=== PATIENT | female | born 1950 | race Caucasian/White ===

== ENCOUNTER 2017-06-18 07:51 | Day surgery (SDC) | payer MEDICARE, OTHER, SELFPAY ==
[2017-04-17 08:52] VITALS: BP 130/68; BMI 27.3
[2017-06-15 11:14] LABS: Hematocrit 38.4 % (37-47); Hemoglobin 13.2 g/dl (12.0-15.0); Mean Corp Hgb Conc 34.4 g/gl (32-36); Mean Corpuscular Hgb 30.3 pg (27.0-32.0); Mean Corpuscular Volume 88.1 fL (81-99); Mean Platelet Vol. 9.6 fl (6.2-12.0); Platelet Count 335 K/mm3 (150-450); RBC Distribution Width CV 12.9 % (11.6-14.6); RBC Distribution Width SD 40.4 fl (35.1-43.9); Red Blood Count 4.36 M/mm3 (4.2-5.4); White Blood Count 6.1 K/mm3 (4.4-11.0)
[2017-06-15 11:35] LABS: Anion Gap 7 (5-15); BUN 23 mg/dL (7-18); Calcium,Total 8.8 mg/dL (8.5-10.1); Chloride 107 mmol/L (98-107); Creatinine, Serum 0.74 mg/dL (0.55-1.02); EST Glomerular Filtration Rate 84 mL/min (>60); Est Glom Filt Rate - Afr Amer 101 mL/min (>60); Glucose 89 mg/dL (74-106); Potassium 3.6 mmol/L (3.5-5.1); Sodium Level 142 mmol/L (136-145)
[2017-06-15 11:37] LABS: Scan Indicated on CBC? Y/N NO
--- NOTE | 2017-06-16 10:42 | EKG12_ITS ---
Test Reason : PRE OP Blood Pressure : / mmHG Vent. Rate : 073 BPM Atrial Rate : 073 BPM P-R Int : 158 ms QRS Dur : 074 ms QT Int : 378 ms P-R-T Axes : 062 023 012 degrees QTc Int : 416 ms Normal sinus rhythm Normal ECG Confirmed by ANTHONY QUINTERO, JENNIFER ([id number]), publications editor AB GOLDMAN ([id number]) on 06/19/2017 12:53:25 PM Referred By: Loren Chang Confirmed By:JENNIFER CRUZ MD
--- NOTE | 2017-06-18 | OV_PTH ---
PATIENT: THERON VARNER LOC: [facility] U#:[id number] AGE/SX: 66/F ROOM: RE06/18/[address]: Dr. Loren Chang MD : 1950 BED: DIS: 06/18/2017 SPEC #: [id number] RECD: 06/18/17 11:25 STATUS: YURI SHANICE #: [id number] AUGUSTO: 06/18/17 00:[address]: Loren Chang DEPT: SURGICAL PATHOLOGY RECD BY: Audi Cuevas ENTERED: 06/18/17 11:25 SP TYPE: OVARY OTHR DR: Dr. 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 Fallopian tube - no pathologic diagnosis. KAILEE:rogelio 06/19/17 COMMENT Please make reference to previous specimen ([id number]) ovary and fallopian tube, right, salpingo-oophorectomy with diagnosis of ovarian serous cystadenofibroma with serous papilloma. MICROSCOPIC DESCRIPTION Slides are reviewed. GROSS DESCRIPTION Received in fixative is one container labeled with the patient's name and designated left tube and ovary. The specimen consists of a smooth, glistening cystic ovary that is light pink-wyman in color measuring 5.5 x 4 x 3.5 cm. The external surface is smooth and glistening. No papillary projections or excrescences are identified. The adjacent tube is a fallopian tube measuring 7 cm in length and 0.4 cm in average diameter. No tubo-ovarian adhesions are seen. The external surface of the ovary is inked and the ovary is serially sectioned. The inner cyst wall lining is also smooth and glistening. The ovary contains clear, light wyman fluid. The cyst wall averages 0.1 cm in thickness. A focal nodularity measuring 2 mm in greatest dimension is noted. A white plaque-like area measuring 3 x 2 x 0.2 cm in also present adjacent to this area of nodularity. Filling Carrier sections of ovary and fallopian tube are submitted in four cassettes. / AM:rogelio 06/18/17 TC:1 CPT: 39751
[2017-06-18 08:26] VITALS: BP 112/56; PULSE 75; RESP 16; TEMP 36.7; O2SAT 97; BMI 27.8
--- NOTE | 2017-06-18 09:15 | FLU_PTH ---
PATIENT: THERON VARNER LOC: [facility] U#:[id number] AGE/SX: 66/F ROOM: RE06/18/[address]: Dr. Loren Chang MD : 1950 BED: DIS: 06/18/2017 SPEC #: [id number] RECD: 06/18/17 11:24 STATUS: YURI SHANICE #: [id number] AUGUSTO: 06/18/17 09:[address]: Loren Chang DEPT: CYTOLOGY RECD BY: Audi Cuevas ENTERED: 06/18/17 11:25 SP TYPE: Fluid OTHR DR: Dr. Zhou Richards III, MD Tissues: A - Pelvis, NOS B - OVARIAN CYST Procedures: Pap Stain (control) Special Stain Group II Surgery Specimen Level IV Cell Block Cytospin Fluid HEADER OPERATION: Laparoscopic salpingo-oophorectomy, cell washings PRE-OP DIAGNOSIS: Left ovarian cyst TISSUE SUBMITTED: A ? Pelvic washings for cytology, B ? Left ovarian cyst fluid for cytology DIAGNOSIS CYTOLOGY A. Pelvic washings for cytology (cytospin and cell block): Negative for malignant cells. See cytology study and comment. B. Left ovarian cyst fluid (cytospin and cell block): Negative for malignant cells. See cytology study and comment. SJ:rg 06/19/17 COMMENT Please correlate with corresponding surgical specimen [id number], left fallopian tube and ovary with diagnosis of serous cystadenofibroma with focal papillary features. CYTOLOGY STUDY Slides are reviewed. A. The specimen is paucicellular and bloody and consists of benign mesothelial cells. B. The specimen is bloody and consists of benign epithelial lining cells and numerous macrophages. CYTOLOGY GROSS A - Received is 70 ml of cloudy fluid labeled with the patient's name and and designated per the requisition as pelvic washings. Submitted for cytology preparation including cell block. B - Received is 5 ml of red cloudy fluid labeled with the patient's name and and designated per the requisition as left ovarian cyst fluid. Submitted for cytology preparation including cell block. 06/18/17 TC:5 CPT: 13315 x2, 96696 x2
--- NOTE | 2017-06-18 09:46 | HP.PCM_ITS ---
History and Physical Date of Admission: 06/18/17 Intake Vital Signs 3 04/17/17 Height 5 ft 1.5 in 04/17/17 Weight: 147 lb 8 oz 04/17/17 Body Mass Index (BMI) 27.3 04/17/17 Blood Pressure 130/68 Intake Visit Reasons: Consult cyst Chief Complaint: Cyst Consult Foreclosure Field Inspector Required: No Is patient in pain?: No Allergies No Known Allergies Allergy (Unverified 04/17/17 08:57) Medications estradiol 10 mcg vaginal tablet 10 mcg VAGINAL QDAY 30 Days #30 tab 04/17/17 [ Rx Confirmed 04/17/17] hydrochlorothiazide 25 mg tablet 25 mg PO QDAY 04/17/17 [History Confirmed 04/17] Is last menstrual period known: No Post menopausal: Yes Patient : No : No PFSH Medical History EP Study Ablation (Acute) Surgical History H/O colonoscopy (Acute) History of appendectomy (Acute) Family History Father Heart disease Social History Smoking Status: Never smoker alcohol intake: current details: social substance use type: does not use caffeine: Yes frequency: 1-2 times per week seatbelt use: always do you feel safe at home: Yes HPI Consult cyst: Details: THERON VARNER is a 66 year old who presents for fu of ovarian cyst. It appears stable in size but she is still symptomatic with painful intercourse and wants to have it removed. s he denies signficaint daily pain or any bleeding or discharge. Pregancy History 2 2 Elective abortions Hx Para 2 Spontaneous abortions Hx # Term Pregnancies Ectopic pregnancies Hx # Pregnancies Multiple births # of living children Past Pregnancies Del. Date Name GA/Weeks Outcome Route Bth Weight Gen Labor [facility] FOB Unknown 1969 Rudy Unknown 1971 Tawnya SU Const Constitutional: Reports system reviewed and no additional complaints, except as docu GI GI: Denies abdominal pain, nausea, vomiting or cramping : Reports as per HPI all other systems reviewed and negative Exam Const General: cooperative, healthy appearing, comfortable, no acute distress, well developed Nutritional Appearance: average body habitus Orientation: alert [facility] Head: normal to inspection, normocephalic Ears: hearing grossly normal bilaterally, external ears normal Nose: external nose normal, nares normal Face and sinus: normal facial exam Neck Neck: normal visual inspection, trachea midline, no lymphadenopathy Thyroid: thyroid normal Resp Effort & Inspection: normal respiratory effort Abdn: soft NTTP ND Musc Other: gross motor intact no deficits, full bilateral strength Skin General: no rashes or lesions noted Neuro Motor: muscle tone normal throughout Assessment & Plan Problems 1. Left ovarian cyst N83.202 plan surgical removal Plan discussed expectant managment versus surgical removal- plan laparoscopic LSO. Discussed with the patient risks of surgery including risks of anesthesia, bleeding, infection, damage to surrounding structures such as bowel, bladder, or vasculature that could lead to additional surgery to repair. 06/18/17 945 i have seen patient and updated h and p Loren Chang
[2017-06-18] MEDS: Bupivacaine 0.25% 30 ML Vial (10:05)
[2017-06-18 11:08] VITALS: BP 112/56; BP 123/91; PULSE 85; RESP 18; TEMP 36.9; O2SAT 94
--- NOTE | 2017-06-18 11:10 | PCM.DC.TUB ---
Discharge Diet: No Restrictions - Increase fluid intake for the next 48 hours. Discharge Activity: Return to Normal Activity, May Drive - when you are no longer taking narcotic pain medications., May Shower, May Take a Tub Bath - in 7 days Additional Activity Instructions:: Ambulate often the next week after surgery. Nothing in the vagina for 5 days. Call your doctor if your incision/area has: Continuous Slow Oozing, Sudden Increased Bleeding, Increased Pain/ Swelling, Increased Redness, Foul Smelling Discharge Call your doctor if you observe: Fever of 101 or Higher Allergies/Adverse Reactions: Allergies No Known Allergies Allergy (Unverified 06/11/17 15:00) Medications to take at Discharge hydrochlorothiazide 25 mg tablet 25 mg PO QDAY 04/17/17 Albuterol Inhaler [Ventolin Hfa (SP)] 1 - 2 puff INHALATION Q6H PRN PRN 06/11/17 Estradiol 10 mcg VAGINAL MOWEFR 06/11/17 Multivitamin [Multiple Vitamins] 1 each PO DAILY 06/11/17 Omeprazole Magnesium [Prilosec Otc] 20 mg PO PRN PRN 06/11/17 Turmeric Root Extract [Turmeric] 500 mg PO DAILY 06/11/17 Naproxen [Naprosyn] 250 - 500 mg PO Q8H PRN PRN #30 tab 06/18/17 Oxycodone HCl/Acetaminophen [Percocet 5-325] 2 tablet PO Q4H PRN PRN 7 Days #28 tablet 06/18/17 The following prescriptions were given: Oxycodone HCl/Acetaminophen [Percocet 5-325] 2 tablet PO Q4H PRN PRN 7 Days #28 tablet PRN Reason: Moderate-Severe pain Naproxen [Naprosyn] 250 - 500 mg PO Q8H PRN PRN #30 tab PRN Reason: MILD PAIN Primary Care Physician: Zhou Richards III, MD [Primary Care Provider] - Please Follow Up With: Loren Chang MD - [phone] When: 2 weeks
[2017-06-18 11:15] VITALS: BP 112/56; BP 141/68; PULSE 88; RESP 18; O2SAT 93
[2017-06-18 11:30] VITALS: BP 112/56; BP 143/71; PULSE 89; RESP 18; O2SAT 94
[2017-06-18 11:45] VITALS: BP 112/56; BP 133/71; PULSE 75; RESP 16; TEMP 36.9; O2SAT 95
[2017-06-18] MEDS: HYDROcodone Bitartrate/Apap 5/325 Tablet PO (12:21)
[2017-06-18 13:06] VITALS: BP 112/56
--- NOTE | 2017-06-19 06:15 | PCM.OPRPT ---
Problem List (1) Left ovarian cyst Status: Chronic Comment: plan surgical removal Report of Operation Date of Procedure: 06/19/17 Pre-Operative Diagnosis: left ovarian cyst Post-Operative Diagnosis: SAME Surgery/Procedure Performed:: laparoscopic left salpingooohorectomy Description of Surgical Findings:: left ovarian cyst and scar tissue around cyst plasma processing technician: Sheridan Mcleod Type of Anesthesia:: General Special Medications: none Specimen's removed: left fallopian tube and ovary Drains: none Estimated Blood Loss (mL): minimal Fluids Replaced: crystalloid Description of Procedure: Patient was taken in the operating room and was placed under general anesthesia was prepped and draped in normal sterile fashion in the dorsal lithotomy position. Bladder was drained of clear urine and SCDs were on preoperatively. Uterus was sounded and a uterine manipulator was placed after dilating. Attention was then paid to the abdominal portion of the procedure and the umbilicus was elevated with towel clamps and injected with Marcaine and after a 12 mm incision was made and the Veress needle was entered into the abdomen confirmed to be intra-abdominal with a low opening pressure of less than 5 mmHg. Abdomen was insufflated with CO2 gas and a 12 mm optical trocar was placed under direct visualization. A left lower quadrant 5 mm port and a 5 mm port in the RLQ placed under direct visualization. left ovary was identified and noted to be significantly enlarged with some overlying omental scar tissue and rectosigmoid adhesions whic hwere taken down twith the ligasure device. Excellent hemostasis was noted but some raw appearance to side wall and tae was applied. Liver and upper abdomen were visualized notably within normal limits and no other gross abnormalities were seen in the abdomen. umblical site was enlarged to remove the ovary inside a bag through the opening after some of the serosanguinous fluid was drained and removed. umbilical site was closed directly using 0 vicryl in the fascia. All instruments removed from the abdomen after gas was desufflated. Port sites were closed with 3-0 Monocryl Steri's and op sites were applied. All instruments removed from the vagina and patient was awoken and taken recovery in stable condition. all instruments removed from the vagina. Grafts/Implants Used: none - Complications none - Admit VTE Documentation VTE Present on Admission: No VTE Mechan Device Prophylaxis: SCD's
== END 2017-06-18 13:06 | disposition home or self-care (01) ==
LOC: SDC 07:52 → AC 07:52
PROVIDERS: Family Provider Family Medicine; PCP Family Medicine; Visit Provider Obstetrics & Gynecology
PROC: (CPT 58720; principal; 2017-06-18 09:00)
DX: N83.202 Unspecified ovarian cyst, left side (principal); J45.909 Unspecified asthma, uncomplicated; K21.9 Gastro-esophageal reflux disease without esophagitis; Z85.828 Personal history of other malignant neoplasm of skin
CPT/HCPCS: 58661; 36415; 80048; 85027; 86850; 86900; 88108; 88305; 88307; 88313; 93005; J7120; J2405

== ENCOUNTER → 2017-11-13 09:29 | Outpatient (CLI) | payer MEDICARE, OTHER, SELFPAY | PROVIDERS: Family Provider Family Medicine; PCP Family Medicine; Visit Provider Obstetrics & Gynecology | DX: R59.0 Localized enlarged lymph nodes (principal); R92.8 Other abnormal and inconclusive findings on diagnostic imaging of breast | CPT/HCPCS: 76642; 77062; 77066; G0279 ==

== ENCOUNTER → 2019-11-24 | Outpatient (CLI) | payer MEDICARE, SELFPAY ==
[2019-11-22 09:11] VITALS: BMI 27.3
--- NOTE | 2019-11-24 09:18 | BI_ITS ---
MAMMOGRAPHY - BILATERAL DIAGNOSTIC REASON FOR EXAM: Female, 68 years old. Left breast pain. PERTINENT HISTORY: Non-contributory. TECHNIQUE: Digital bilateral breast jacquie (3D mammographic acquisition) in the CC and MLO projections. 2-D mediolateral oblique (MLO) and craniocaudad (CC) views of both breasts were obtained. CAD: Full Field Digital Mammography with Computer Added Detection was performed. COMPARISON: Comparison is made with prior study dated 11/13/2017 and 01/13/2017 FINDINGS: Breast Composition: The breasts are heterogeneously dense, which may obscure small masses. There are no dominant masses or suspicious calcifications. Stable small benign-appearing bilateral axillary lymph nodes. No other significant abnormalities are identified. There has been no significant change since the prior study. BI/DIAG MAMM W/CAD, BILAT IMPRESSION: Stable bilateral diagnostic mammogram. With the patient''s history of left breast pain, correlation with ultrasound is recommended. ASSESSMENT CATEGORY: BIRADS Category 0: Incomplete. Need additional imaging evaluation. A letter regarding these results will be sent to the patient by the facility within 30 days. Approximately 10% of breast cancers are not detected by mammography. A normal mammogram should not delay biopsy of a clinically suspicious abnormality. Electronically Signed: Johnathan Domingo, at 10:41 EDT , Service support ,
--- NOTE | 2019-11-24 09:18 | US_ITS ---
STUDY: ULTRASOUND BREAST - LEFT REASON FOR EXAM: Female, 68 years old. Pain in the left breast. TECHNIQUE: Axial and longitudinal images of the LEFT breast were performed with a high resolution ultrasound transducer. # OF IMAGES: 17 COMPARISON: Comparison is made with prior mammogram done earlier in the day. FINDINGS: LEFT Breast: The retroareolar region of the left breast was examined by ultrasound. There is evidence of dilated retroareolar ducts. US/Breast Limited Unilateral IMPRESSION: Dilated retroareolar ducts. ASSESSMENT CATEGORY: BIRADS Category 2: Benign. A letter regarding these results will be sent to the patient by the facility within 30 days. Electronically Signed: Johnathan Domingo, at 11:20 EDT , Service support ,
== END | disposition home or self-care (01) ==
LOC: OPBI 09:18
PROVIDERS: PCP Family Medicine; Referring Provider Nurse Practitioner Women's Health; Visit Provider Nurse Practitioner Women's Health
DX: N64.4 Mastodynia (principal)
CPT/HCPCS: 76642; 77062; 77066; G0279

== ENCOUNTER → 2020-02-29 | Outpatient (CLI) | payer MEDICARE, SELFPAY ==
[2020-02-29 12:05] VITALS: BMI 29.0
== END | disposition home or self-care (01) ==
LOC: LABSPEC 16:39
PROVIDERS: PCP Family Medicine; Referring Provider Nurse Practitioner Women's Health; Visit Provider Nurse Practitioner Women's Health
DX: N39.0 Urinary tract infection, site not specified (principal); R30.0 Dysuria
CPT/HCPCS: 87086; 87088

== ENCOUNTER → 2020-03-29 | Outpatient (CLI) | payer MEDICARE, SELFPAY ==
[2020-03-29 09:07] VITALS: BMI 28.7
== END | disposition home or self-care (01) ==
LOC: LABSPEC 12:50
PROVIDERS: PCP Family Medicine; Referring Provider Nurse Practitioner Women's Health; Visit Provider Nurse Practitioner Women's Health
DX: N39.0 Urinary tract infection, site not specified (principal); R10.2 Pelvic and perineal pain
CPT/HCPCS: 87086; 87088

== ENCOUNTER → 2020-05-11 08:30 | Outpatient (CLI) | payer MEDICARE, SELFPAY ==
[2020-05-07 10:32] VITALS: BMI 28.3
--- NOTE | 2020-05-11 09:32 | US_ITS ---
STUDY: ULTRASOUND BREAST - LEFT REASON FOR EXAM: Female, 69 years old. Palpable lump left breast. TECHNIQUE: Axial and longitudinal images of the LEFT breast were performed with a high resolution ultrasound transducer. # OF IMAGES: 29 COMPARISON: Comparison is made with prior mammogram done earlier today. FINDINGS: LEFT Breast: There is a 1.6 cm x 1.5 cm x 0.7 cm well-defined hypoechoic nodule deep in the breast at the 5 o''clock position at 3 cm from nipple. A biopsy is recommended for further evaluation. US/Breast Complete Unilateral IMPRESSION: The palpable abnormality corresponds to a 1.6 cm x 1.5 cm x 0.7 cm well-defined hypoechoic nodule at the 5 o''clock position of the breast at 3 cm from nipple. A biopsy is recommended for further evaluation. ASSESSMENT CATEGORY: BIRADS Category 4: Suspicious - Biopsy Should Be Considered. A letter regarding these results will be sent to the patient by the facility within 30 days. Electronically Signed: Johnathan Domingo MD at 12:20 EST , Service support ,
--- NOTE | 2020-05-11 09:32 | BI_ITS ---
MAMMOGRAPHY - UNILATERAL DIAGNOSTIC: LEFT BREAST REASON FOR EXAM: Female, 69 years old. Mastalgia. Left retroareolar pain. PERTINENT HISTORY: Non-contributory. TECHNIQUE: Digital unilateral breast jacquie (3D mammographic acquisition) in the CC and MLO projections. 2-D mediolateral oblique (MLO) and craniocaudad (CC) views of both breasts were obtained. CAD: Full Field Digital Mammography with Computer Added Detection was performed. COMPARISON: Comparison is made with prior examination dated 11/13/2017 and 11/24/2019. FINDINGS: Breast Composition: The breasts are heterogeneously dense, which may obscure small masses. There are no dominant masses or suspicious calcifications. Stable small benign appearing left axillary lymph nodes. No other significant abnormalities are identified. There has been no significant change since the prior study. BI/DIAG MAMM W/CAD, UNILAT IMPRESSION: Stable unilateral diagnostic mammogram. With the patient''s history of left breast pain, correlation with ultrasound is recommended. ASSESSMENT CATEGORY: BIRADS Category 0: Incomplete. Need additional imaging evaluation. A letter regarding these results will be sent to the patient by the facility within 30 days. Approximately 10% of breast cancers are not detected by mammography. A normal mammogram should not delay biopsy of a clinically suspicious abnormality. Electronically Signed: Johnathan Domingo MD at 11:06 EST , Service support ,
== END ==
PROVIDERS: PCP Family Medicine; Referring Provider Obstetrics & Gynecology; Visit Provider Obstetrics & Gynecology
DX: N64.4 Mastodynia (principal)
CPT/HCPCS: 76641; 77061; 77065; G0279

== ENCOUNTER → 2020-05-31 11:21 | Outpatient (CLI) | payer MEDICARE, SELFPAY ==
[2020-05-18 14:24] VITALS: BMI 27.9
--- NOTE | 2020-05-31 11:21 | MRI_ITS ---
STUDY: BILATERAL BREAST MR WITHOUT AND WITH CONTRAST REASON FOR EXAM: Female, 69 years old. Left breast pain. Well-defined hypoechoic nodule in the left breast for which biopsy was recommended. TECHNIQUE: Multi-sequence multi-echo imaging of both breasts was performed with a dedicated breast coil. T1-weighted and T2-weighted images were performed before the administration of contrast. T1-weighted images were also performed after the administration of 13ml IV Dotarem without complications. COMPARISON: Mammograms dated 11/24/2019 and 05/11/2020. Left breast ultrasound dated 05/11/2020. FINDINGS: RIGHT BREAST: The breast tissue is heterogeneously dense with minimal background enhancement. 7 mm in diameter circumscribed enhancing superficial mass in the medial aspect of the right breast compatible with a benign skin lesion. There are no abnormal enhancing masses or areas of non-mass enhancement in the right breast. LEFT BREAST: The breast tissue is heterogeneously dense with minimal background enhancement. There are no abnormal enhancing masses or areas of non-mass enhancement in the left breast. Lesion described on left breast ultrasound 05/11/2020 is not identified. No enhancing lesion is seen at the 5 o''clock position of the left breast. There are no enlarged or abnormal lymph nodes. There is no abnormality in the visualized regions of the chest or liver. MRI/Breast Bilateral W/O and W IMPRESSION: 7 mm in diameter skin lesion in the right breast medially as described. No abnormality of the left breast. Decision to further evaluate this should be made on ultrasound and clinical grounds. CATEGORY: BIRADS Category 2: Benign. A letter regarding these results will be sent to the patient by the facility within 30 days. Electronically Signed: George Byrne MD at 12:42 EDT , Service support ,
[2020-05-31 11:36] LABS: CREATININE FINGERSTICK 0.8 mg/dL (0.55-1.02); EGFR FINGERSTICK > 60.0000 mL/min (>60)
== END ==
PROVIDERS: PCP Family Medicine; Referring Provider Surgery; Visit Provider Surgery
DX: N64.4 Mastodynia (principal)
CPT/HCPCS: 77049; A9575; A4216; C8908

== ENCOUNTER → 2020-12-03 07:49 | Outpatient (CLI) | payer MEDICARE, SELFPAY ==
[2020-05-18 14:24] VITALS: BMI 27.9
--- NOTE | 2020-12-03 07:52 | US_ITS ---
STUDY: ULTRASOUND BREAST - LEFT REASON FOR EXAM: Female, 69 years old. One year history of left breast pain. 6 month follow-up examination. TECHNIQUE: Axial and longitudinal images of the LEFT breast were performed with a high resolution ultrasound transducer. # OF IMAGES: 29 COMPARISON: Comparison is made with prior examination of 05/11/2020. FINDINGS: LEFT Breast: There is a 1.4 cm x 1.6 x 0.7 cm well-defined hypoechoic nodule in the breast at the 5 o''clock position of the breast at 3 cm some nipple. This is unchanged. US/Breast Limited Unilateral IMPRESSION: Stable examination. ASSESSMENT CATEGORY: BIRADS Category 2: Benign. A letter regarding these results will be sent to the patient by the facility within 30 days. Electronically Signed: Johnathan Domingo MD at 14:35 EDT , Service support ,
== END ==
PROVIDERS: PCP Family Medicine; Referring Provider Surgery; Visit Provider Surgery
DX: N64.4 Mastodynia (principal)
CPT/HCPCS: 76642

== ENCOUNTER → 2020-12-19 10:15 | Outpatient (CLI) | payer MEDICARE, SELFPAY ==
--- NOTE | 2020-12-19 09:45 | BRBX_PTH ---
PATIENT: THERON VARNER LOC: [facility] U#:[id number] AGE/SX: 74/F ROOM: RE12/19/[address]: Dr. Pete Richards MD : 1950 BED: DIS: SPEC #: [id number] RECD: 12/19/20 10:41 STATUS: YURI PRASAD #: [id number] AUGUSTO: 12/19/20 09:[address]: Pete Richards DEPT: SURGICAL PATHOLOGY RECD BY: Jessica Lewis ENTERED: 12/19/20 11:20 SP TYPE: BREAST BX OTHR DR: Dr. Harsha Sharma MD Tissues: Left breast, NOS Procedures: Surgery Specimen Level IV HEADER OPERATION: Left breast biopsy PRE-OP DIAGNOSIS: Abnormal left breast ultrasound TISSUE SUBMITTED: Left breast tissue MICROSCOPIC DIAGNOSIS Left breast, core biopsy: Fragments of fatty benign breast tissue, no pathologic diagnosis. Negative for atypia or malignancy. See comment. SJ:rogelio 12/20/2020 COMMENT Correlation with clinical, radiologic findings and appropriate follow up are necessary. MICROSCOPIC DESCRIPTION Slides are reviewed. GROSS DESCRIPTION Received in fixative is one container labeled with the patient's name and designated left breast. The specimen consists of multiple elongated fragments of wyman-yellow fibroadipose tissue that in aggregate measure 1 x 0.6 x 0.1 cm. The entire specimen is submitted in one cassette. / KAILEE:rogelio 12/19/20 TC:4 CPT: 76940
--- NOTE | 2020-12-19 10:20 | BI_ITS ---
MAMMOGRAPHY - UNILATERAL DIAGNOSTIC: LEFT BREAST REASON FOR EXAM: Female, 69 years old. s/p breast biopsy PERTINENT HISTORY: Non-contributory. TECHNIQUE: Digital examination. Mediolateral oblique (MLO) and craniocaudad (CC) views of the breast were obtained. CAD: CAD was performed on this study. COMPARISON: 05/11/2020 FINDINGS: Breast Composition: The breasts are heterogeneously dense, which may obscure small masses. There are no dominant masses or suspicious calcifications. Interval biopsy in the lower inner quadrant of the left breast with placement of a biopsy clip. No definite mass or calcifications are seen. BI/DIAG MAMM W/CAD, UNILAT IMPRESSION: Stable unilateral diagnostic mammogram. Routine screening mammogram is recommended one year from the day last screening mammogram. ASSESSMENT CATEGORY: BIRADS Category 1: Negative. A letter regarding these results will be sent to the patient by the facility within 30 days. FOLLOW-UP RECOMMENDATION: Yearly follow-up mammogram recommended. (A) Approximately 10% of breast cancers are not detected by mammography. A normal mammogram should not delay biopsy of a clinically suspicious abnormality. Electronically Signed: Dom Quintero MD at 14:16 EDT Tel , Service support ,
== END ==
PROVIDERS: PCP Family Medicine; Referring Provider Surgery; Visit Provider Surgery
DX: N64.4 Mastodynia (principal); R92.8 Other abnormal and inconclusive findings on diagnostic imaging of breast; Z98.890 Other specified postprocedural states
CPT/HCPCS: 77065; 88305

== ENCOUNTER → 2021-02-18 | Outpatient (CLI) | payer MEDICARE, SELFPAY | END | disposition home or self-care (01) | LOC: LABSPEC 12:11 | PROVIDERS: PCP Family Medicine; Referring Provider Nurse Practitioner Women's Health; Visit Provider Nurse Practitioner Women's Health | DX: R35.0 Frequency of micturition (principal) | CPT/HCPCS: 87086; 87088 ==

== ENCOUNTER 2021-03-22 07:49 | Outpatient (CLI) | payer MEDICARE, SELFPAY ==
--- NOTE | 2021-03-22 07:57 | US_ITS ---
STUDY: ULTRASOUND BREAST - LEFT REASON FOR EXAM: Female, 70 years old. 3 month follow-up examination following left breast biopsy. TECHNIQUE: Axial and longitudinal images of the LEFT breast were performed with a high resolution ultrasound transducer. # OF IMAGES: 36 COMPARISON: Comparison is made with prior ultrasound examination of 12/03/2020. FINDINGS: LEFT Breast: There is a 1.3 cm x 1.8 cm x 0.7 cm well-defined hypoechoic nodule at the 5 to 6 o''clock position the breast at 3 cm from the nipple. A tissue clip marker is seen within. US/Breast Limited Unilateral IMPRESSION: Stable appearance of the well-defined hypoechoic nodule at the 5-6 o''clock in the breast at 3 cm from nipple. A tissue clip marker is seen within it. ASSESSMENT CATEGORY: BIRADS Category 2: Benign. A letter regarding these results will be sent to the patient by the facility within 30 days. Electronically Signed: Johnathan Domingo MD at 10:18 EST , Service support ,
== END 2021-03-22 23:59 | disposition short-term general hospital (02) ==
PROVIDERS: PCP Family Medicine; Referring Provider Surgery; Visit Provider Surgery
DX: R92.8 Other abnormal and inconclusive findings on diagnostic imaging of breast (principal)
CPT/HCPCS: 76642

== ENCOUNTER → 2021-08-15 | Outpatient (CLI) | payer MEDICARE, SELFPAY | END | disposition home or self-care (01) | LOC: LABSPEC 16:31 | PROVIDERS: PCP Family Medicine; Visit Provider Obstetrics & Gynecology | DX: R35.0 Frequency of micturition (principal) | CPT/HCPCS: 87086 ==

== ENCOUNTER → 2021-12-25 | Outpatient (CLI) | payer MEDICARE, SELFPAY | END | disposition home or self-care (01) | LOC: LABSPEC 15:27 | PROVIDERS: PCP Family Medicine; Visit Provider Otolaryngology Otolaryngology/Facial Plastic Surgery | DX: J02.9 Acute pharyngitis, unspecified (principal) | CPT/HCPCS: 87070 ==

== ENCOUNTER → 2021-12-30 | Outpatient (CLI) | payer MEDICARE, SELFPAY ==
--- NOTE | 2021-12-30 09:01 | EKG12_ITS ---
Test Reason : PREOP Blood Pressure : / mmHG Vent. Rate : 076 BPM Atrial Rate : 076 BPM P-R Int : 150 ms QRS Dur : 072 ms QT Int : 362 ms P-R-T Axes : 050 012 029 degrees QTc Int : 407 ms Normal sinus rhythm Normal ECG Confirmed by MARISOL QUINTERO, JESUS MANUEL ([id number]), assistant production editor SUDHA JOHNSON ([id number]) on 12/31/2021 11:01:13 AM Referred By: Nguyễn Sofia Confirmed By:JESUS MANUEL DAMON MD
[2021-12-30 09:52] LABS: Absolute Lymphocyte Count 2.67 X10^3/uL (0.83-4.51); Absolute Neutrophil Count 4.4 X10^3/uL (2.0-7.7); Basophil# 0.03 X10^3/uL; Basophil% 0.4 % (0-1); Eosinophil# 0.13 X10^3/uL; Eosinophils% 1.7 % (0-5); Hematocrit 39.6 % (37-47); Hemoglobin 13.3 g/dL (12.0-15.0); Lymphocyte # 2.67 X10^3/ul (0.83-4.51); Lymphocyte % 34.9 % (19-41); Mean Corp Hgb Conc 33.6 g/dL (32-36); Mean Corpuscular Hgb 29.8 pg (27.0-32.0); Mean Corpuscular Volume 88.8 fL (81-99); Mean Platelet Vol. 9.5 fl (6.2-12.0); Monocyte# 0.42 X10^3/uL; Monocyte% 5.5 % (0-10); NRBC Flagged by Analyzer 0 % (0-5); Neutrophil % 57.4 % (47-70); Platelet Count 327 K/mm3 (150-450); RBC Distribution Width CV 12.9 % (11.6-14.6); Red Blood Count 4.46 M/mm3 (4.2-5.4); White Blood Count 7.7 K/mm3 (4.4-11.0)
[2021-12-30 10:14] LABS: Anion Gap 8 (5-15); BUN 14 mg/dL (7-18); BUN/Creat Ratio 18.4 RATIO (10-20); Calcium,Total 9.5 mg/dL (8.5-10.1); Chloride 104 mmol/L (98-107); Creatinine, Serum 0.76 mg/dL (0.55-1.02); EST Glomerular Filtration Rate 80 mL/min (>60); Est Glom Filt Rate - Afr Amer 97 mL/min (>60); Glucose 94 mg/dL (74-106); Potassium 3.6 mmol/L (3.5-5.1); Sodium Level 141 mmol/L (136-145)
== END | disposition home or self-care (01) ==
PROVIDERS: PCP Family Medicine; Referring Provider Orthopaedic Surgery; Visit Provider Orthopaedic Surgery
DX: Z01.818 Encounter for other preprocedural examination (principal); Z79.899 Other long term (current) drug therapy; Z20.822 Contact with and (suspected) exposure to COVID-19
CPT/HCPCS: 36415; 80048; 85025; 87635; 93005; C9803; U0003; U0005

== ENCOUNTER → 2022-05-01 | Outpatient (CLI) | payer MEDICARE, SELFPAY ==
--- NOTE | 2022-05-01 08:37 | BI_ITS ---
MAMMOGRAPHY - BILATERAL SCREENING REASON FOR EXAM: Female, 71 years old. Routine annual screening examination. PERTINENT HISTORY: Non-contributory. TECHNIQUE: Digital bilateral breast niurka (3D mammographic acquisition) in the CC and MLO projections. 2-D mediolateral oblique (MLO) and craniocaudad (CC) views of both breasts were obtained. CAD: Full Field Digital Mammography with Computer Added Detection was performed. COMPARISON: Comparison is made with prior study dated 11/24/2019 and 12/19/2020. FINDINGS: Breast Composition: The breasts are heterogeneously dense, which may obscure small masses. There are no dominant masses or suspicious calcifications. Stable small benign-appearing bilateral axillary lymph nodes. No other significant abnormalities are identified. There has been no significant change since the prior study. BI/SCRN MAMM (CAD)W/NIURKA BILAT IMPRESSION: Stable bilateral screening mammogram. Yearly follow-up mammogram recommended. (A) ASSESSMENT CATEGORY: BIRADS Category 2: Benign. A letter regarding these results will be sent to the patient by the facility within 30 days. Approximately 10% of breast cancers are not detected by mammography. A normal mammogram should not delay biopsy of a clinically suspicious abnormality. [id number] Electronically Signed: Johnathan Domingo MD at 10:20 EST ,
== END | disposition home or self-care (01) ==
LOC: OPBI 08:33
PROVIDERS: PCP Family Medicine; Visit Provider Obstetrics & Gynecology
DX: Z12.31 Encounter for screening mammogram for malignant neoplasm of breast (principal)
CPT/HCPCS: 77063; 77067

== ENCOUNTER → 2023-05-14 | Outpatient (CLI) | payer MEDICARE, SELFPAY ==
--- NOTE | 2023-05-14 07:54 | CT_ITS ---
STUDY: CT MAXILLOFACIAL SINUSES REASON FOR EXAM: Female, 72 years old. CHRONIC SINUSITIS RADIATION DOSAGE (If Supplied By Facility): CTDIvol = ( 33.06 ) mGy, DLP = ( 792.53 ) mGycm TECHNIQUE: The patient was scanned in a multi detector CT scanner. High resolution axial imaging was performed without the administration of intravenous contrast material. Sagittal and coronal images were reconstructed. Individualized dose optimization techniques were used for this CT. COMPARISON: None. FINDINGS: FRONTAL SINUSES: Normal aeration, without mucosal inflammatory disease. ETHMOIDAL SINUSES: Normal aeration, without mucosal inflammatory disease. MAXILLARY SINUSES: Minimal degree of mucosal thickening at the base of the left maxillary sinus. SPHENOIDAL SINUSES: Normal aeration, without mucosal inflammatory disease. There is patency of the bilateral maxillary infundibuli with normal uncinate processes, ethmoid bullae, and hiatus semilunaris. Normal bilateral middle turbinates. Normal bilateral inferior turbinates. Normal midline nasal septum. There is patency of the bilateral nasal airways. The visualized osseous structures are normal. The visualized bilateral orbital contents are normal. Small benign-appearing bilateral cervical lymph nodes. CT/Sinus/Facial Bone IMPRESSION: Minimal degree of mucosal thickening at the base of the left maxillary sinus. Electronically Signed: Johnathan Domingo MD at 8:45 EST ,
--- OUTSIDE RECORDS SUMMARY | 2023-05-14 07:59 | XMS RPT_ITS | CCD ---
Author Name Unknown Address [address] [place] [address] Organization [facility] Care Team Providers Care [place] [employer]razzo Finisher Name Role Phone Loren Hernández MD Unavailable [phone] TOOTIE Ayers RN, Mable Aguilar Unavailable Unavailabl manuel Romeo MD, Gale Aguilar Primary Care Provider Gale Romeo MD Primary Care Provider Gale Romeo MD Primary Care Provider Gale Romeo MD Primary Care Provider Gale Romeo MD Primary Care Provider PATRICIA METCALF Referring Unavailable GALE ROMEO Primary Care Unavailable GALE ROMEO Primary Care Unavailable GALE ROMEO Referring Unavailable GALE ROMEO A Primary Care Unavailable GALE ROMEO A Referring Unavailable GALE ROMEO Primary Care Unavailable CECY WALLIS Referring Unavailable GALE ROMEO Primary Care Unavailable CECY WALLIS Attending Unavailable PATRICIA METCALF Attending Unavailable PATRICIA METCALF Referring Unavailable BHAVIN ROMEOREY A Primary Care Unavailable PATRICIA METCALF Referring Unavailable BHAVIN ROMEOREY A Primary Care Unavailable Allergies Allergy Classification Reported Allergen(s) Allergy Type Date of Onset Reaction(s) Facility (20 sources) environmental [Other] Propensity to adverse reactions 6 Other: See Comments [facility] Work Phone: (1 source) OTHER; Translations: [OTHER] Propensity to adverse reactions (disorder) 6 [facility] Repository Medications Current Medications Medication Drug Class(es) Dates Sig (Normalized) Sig (Original) atorvastatin 40 mg oral tablet (3 sources) HMG-CoA Reductase Inhibitor Start: 06-03-2021 End: 08-05-2021 take 1 tablet by mouth once daily for hyperlipidemia atorvastatin (LIPITOR) 40 mg tablet Take 1 tablet by mouth once daily. For cholesterol. 30 tablet 0 06/03/2021 08/05/2021 Discontinued (Side Effects) Completed/Discontinued Medications Medication Drug Class(es) Dates Sig (Normalized) Sig (Original) ascorbic acid 500 mg oral tablet (6 sources) Vitamin C Start: 07-21-2014 take 1 tablet by mouth once daily VITAMIN C 500 MG TABS One tablet by mouth daily ASCORBIC ACID [id number] Ricki Landrum MD aspirin 81 mg oral tablet (20 sources) Platelet Aggregation Inhibitor, Nonsteroidal Anti-inflammatory Drug Start: 07-05-2010 take 1 tablet by mouth three times weekly ASPIRIN 81 MG TABS One tablet by mouth three times a week ASPIRIN [id number] Loren Hernández MD Problems Active Problems Problem Classification Problem Date Documented Date Episodic/Chronic Abdominal pain (6 sources) Pelvic and perineal pain; Translations: [Pelvic and perineal pain] Onset: 12-30-2016 12-30-2016 Cardiac dysrhythmias (20 sources) Supraventricular tachycardia; Translations: [AV ronald re-entry tachycardia] Onset: 07-05-2010 07-05-2010 Chronic Disorders of lipid metabolism (20 sources) Hyperlipidemia; Translations: [Hypercholesterolemia] Onset: 07-05-2010 07-05-2010 Chronic Essential hypertension (20 sources) Essential hypertension; Translations: [Essential (primary) hypertension] Onset: 01-31-2020 01-31-2020 Chronic Genitourinary symptoms and ill-defined conditions (1 source) Dysuria; Translations: [Dysuria] Episodic Heart valve disorders (20 sources) Rheumatic mitral valve disease, unspecified; Translations: [Mitral valve disorders] Onset: 02-23-2019 12-16-2004 Chronic Hemorrhoids (20 sources) Hemorrhoids; Translations: [Unspecified hemorrhoids] 12-16-2004 Episodic Immunizations and screening for infectious disease (5 sources) Encounter for screening for human papillomavirus (HPV); Translations: [Viral screening status] Onset: 12-30-2016 12-30-2016 Episodic Malaise and fatigue (1 source) Other fatigue; Translations: [Fatigue, unspecified type] Onset: 03-23-2023 Episodic Menopausal disorders (20 sources) Atrophy of vagina; Translations: [Postmenopausal atrophic vaginitis] Onset: 10-18-2014 10-18-2014 Chronic Osteoporosis (20 sources) Senile osteoporosis; Translations: [Age-related osteoporosis without current pathological fracture] Onset: 07-17-2017 07-17-2017 Chronic Other female genital disorders (20 sources) Dyspareunia due to non-psychogenic cause in the female; Translations: [Other specified dyspareunia] Onset: 10-18-2014 10-18-2014 Chronic Other inflammatory condition of skin (20 sources) Psoriasis; Translations: [Other psoriasis] 12-16-2004 Chronic Other nervous system disorders (14 sources) Chronic pain syndrome; Translations: [Chronic pain syndrome] Onset: 11-13-2021 Chronic Spondylosis; intervertebral disc disorders; other back problems (13 sources) Degeneration of lumbar intervertebral disc; Translations: [Other intervertebral disc degeneration, lumbar region] Onset: 11-13-2021 Chronic Unclassified (2 sources) Radiofrequency ablation operation for arrhythmia ; Translations: [Other specified postprocedural states] Onset: 08-15-2015 08-15-2015 Unclassified (6 sources) Gynecologic examination ; Translations: [Encounter for gynecological examination (general) (routine) without abnormal findings] Onset: 12-30-2016 Resolved: 12-30-2016 12-30-2016 Unclassified (2 sources) Screening mammography ; Translations: [Encounter for screening mammogram for malignant neoplasm of breast] Onset: 12-30-2016 12-30-2016 Unclassified (2 sources) Screening for malignant neoplasm of cervix ; Translations: [Encounter for screening for malignant neoplasm of cervix] Onset: 12-30-2016 12-30-2016 Unclassified (2 sources) Other ovarian cyst, left side; Translations: [Other ovarian cyst, left side] Onset: 01-19-2017 01-19-2017 Unclassified (4 sources) Procedure carried out on subject; Translations: [Encounter for screening for human papillomavirus (HPV)] Onset: 12-30-2016 12-30-2016 Viral infection (20 sources) Herpes simplex; Translations: [Herpes simplex] Onset: 08-15-2016 12-16-2004 Episodic Past or Other Problems Problem Classification Problem Date Documented Date Episodic/Chronic Cardiac dysrhythmias (12 sources) Palpitations; Translations: [Palpitations] Onset: 07-05-2010 Resolved: 12-30-2016 07-05-2010 Episodic Diabetes mellitus without complication (16 sources) Hyperglycemia; Translations: [Hyperglycemia, unspecified] Onset: 09-25-2021 Episodic Fluid and electrolyte disorders (9 sources) Hypokalemia; Translations: [Hypokalemia] Onset: 07-05-2010 07-05-2010 Episodic Other and unspecified benign neoplasm (20 sources) Tubulovillous adenoma of rectum; Translations: [Benign neoplasm of rectum] Onset: 01-15-2015 03-11-2021 Episodic Other and unspecified benign neoplasm (20 sources) Tubular adenoma of colon; Translations: [Benign neoplasm of colon, unspecified] Onset: 04-21-2016 04-21-2016 Episodic Other connective tissue disease (20 sources) Plantar fascial fibromatosis; Translations: [Plantar fascial fibromatosis] Onset: 10-02-2008 10-02-2008 Episodic Other diseases of kidney and ureters (20 sources) Cyst of kidney; Translations: [Cyst of kidney, acquired] Onset: 04-26-2014 04-26-2014 Episodic Other diseases of veins and lymphatics (6 sources) Peripheral venous insufficiency; Translations: [Venous insufficiency (chronic) (peripheral)] Onset: 07-05-2010 07-05-2010 Episodic Other lower respiratory disease (12 sources) Dyspnea; Translations: [Shortness of breath] Onset: 07-05-2010 Resolved: 12-30-2016 12-30-2016 Episodic Other screening for suspected conditions (not mental disorders or infectious disease) (10 sources) Patient encounter status; Translations: [Encounter for screening mammogram for malignant neoplasm of breast] Onset: 03-04-2022 Episodic Residual codes; unclassified (20 sources) H/O cardiac surgery; Translations: [Other specified postprocedural states] Onset: 04-04-2016 04-04-2016 Episodic Residual codes; unclassified (10 sources) Active living will ; Translations: [Other specified health status] Onset: 03-04-2022 Episodic Unclassified (12 sources) Long-term drug therapy; Translations: [Other environmental control administrator (current) drug therapy] Onset: 07-05-2010 Resolved: 10-17-2017 04-22-2011 Results Test Name Value Interpretation Reference Range Facil ity Vital Signs Date Time Vital Sign Value Performing Clinician Landon becker 07-16-2022 15:00-0400 Body height 152.4 cm Patricia Metcalf MD Work Phone: [facility] 07-16-2022 15:00-0400 Body weight 64.41 kg Patricia Metcalf MD Work Phone: [facility] 07-16-2022 15:00-0400 Diastolic blood pressure 64 mm[Hg] Patricia Metcalf MD Work Phone: [facility] 07-16-2022 15:00-0400 Heart rate 80 /min Patricia Metcalf MD Work Phone: [facility] 07-16-2022 15:00-0400 SaO2% (BldA) [Mass fraction] 100 % Patricia Metcalf MD Work Phone: [facility] 07-16-2022 15:00-0400 Systolic blood pressure 125 mm[Hg] Patricia Metcalf MD Work Phone: [facility] 03-04-2022 08:07-0500 Body height 152.5 cm Gale Romeo MD Work Phone: [facility] 03-04-2022 08:07-0500 Body weight 67.59 kg Gale Romeo MD Work Phone: [facility] 03-04-2022 08:07-0500 Diastolic blood pressure 70 mm[Hg] Gale Romeo MD Work Phone: [facility] 03-04-2022 08:07-0500 Heart rate 80 /min Gale Romeo MD Work Phone: [facility] 03-04-2022 08:07-0500 Respiratory rate 16 /min Glae Romeo MD Work Phone: [facility] 03-04-2022 08:07-0500 SaO2% (BldA) [Mass fraction] 96 % Gale Romeo MD Work Phone: [facility] 03-04-2022 08:07-0500 Systolic blood pressure 134 mm[Hg] Gale Romeo MD Work Phone: [facility] 08-05-2021 08:10-0400 Body temperature 97.39 [degF] Cecy Wallis PA-C Work Phone: [facility] 08-05-2021 08:10-0400 Body weight 68.04 kg Cecy Wallis PA-C Work Phone: [facility] 08-05-2021 08:10-0400 Diastolic blood pressure 68 mm[Hg] Cecy Wallis PA-C Work Phone: [facility] 08-05-2021 08:10-0400 Heart rate 76 /min Ceyc Wallis PA-C Work Phone: [facility] 08-05-2021 08:10-0400 Respiratory rate 16 /min Cecy Wallis PA-C Work Phone: [facility] 08-05-2021 08:10-0400 Systolic blood pressure 118 mm[Hg] Cecy Wallis PA-C Work Phone: [facility] 12-30-2016 08:55-0400 BMI (Body Mass Index) 27.29 kg/m2 Loren Hernández MD [facility] 12-30-2016 08:55-0400 BP Diastolic 69 mm[Hg] Loren Hernández MD [facility] 12-30-2016 08:55-0400 BP Systolic 124 mm[Hg] Loren Hernández MD [facility] 12-30-2016 08:55-0400 Height 156.21 cm Loren Hernández MD [facility] 12-30-2016 08:55-0400 Pulse (Heart Rate) 80 /min Loren Hernández MD [facility] 12-30-2016 08:55-0400 Weight 66.59 kg Loren Hernández MD [facility] 07-21-2014 15:26-0400 BSA (Body Surface Area) 1.68 m2 Loren Hernández MD [facility] 07-21-2014 15:26-0400 Respiratory Rate 18 /min Loren Hernández MD [facility] 12-09-2012 09: Heart rate 393 ms Loren Hernández MD [facility] 12-09-2012 09:0 Heart rate 72 /min Loren Hernández MD [facility] Encounters Encounter Date Encounter Type Care Provider Facility Start: 03-23-2023 End: 03-24-2023 ambulatory [facility] Facility:[facility] Start: 03-20-2023 End: 03-20-2023 ambulatory [facility] Facility:[facility] Start: 12-03-2022 Refill Janel jackson APRN.PERITONEAL DIALYSIS REGISTERED NURSE Work Phone: [facility] Procedures Date Procedure Procedure Detail Performing Clinician Start: 05-01-2022 Mammography Cecy Wharton Work Phone: Start: 03-20-2022 Lipid 1996 panel - Serum or Plasma Janel Osman APRN.PERITONEAL DIALYSIS REGISTERED NURSE Work Phone: Start: 08-13-2021 Dxa bone density study 1/> sites axial skel Cecy Wallis PA-C Work Phone: Start: 06-04-2020 Adult depression screening assessment Gale Romeo MD Work Phone: Start: 05-11-2020 Mammography Gale Romeo MD Work Phone: Start: 05-17-2019 Colonoscopy Gale Romeo MD Work Phone: Start: 12-30-2016 End: 01-04-2017 Cancer Ag 125 [Units/volume] in Serum or Plasma Loren Hernández MD Work Phone: Start: 12-30-2016 End: 12-30-2016 Gynecologic examination Encounter for gynecological examination (general) (routine) with abnormal findings Loren Hernández MD Start: 12-30-2016 End: 01-04-2017 Mammogram, screening Loren manzanares MD Work Phone: Start: 12-30-2016 Screening for malignant neoplasm of cervix Screening for cervical cancer Loren Hernández MD Start: 12-30-2016 Screening mammography Screening mammogram for breast cancer Loren Hernández MD Start: 12-30-2016 End: 01-04-2017 Us pelvic nonobstetric real-time image complete Loren Hernández MD Work Phone: Start: 12-30-2016 End: 01-04-2017 Us transvaginal Loren Hernández MD Work Phone: Start: 12-30-2016 End: 12-30-2016 Documentation of current medications Loren Hernández MD Start: 08-15-2015 Radiofrequency ablation operation for arrhythmia Hx of radiofreq ablation arrhythmia focus Loren Hernández MD Start: 07-21-2014 End: 07-21-2014 BUDGET ANALYST Ricki Landrum MD Start: 07-21-2014 End: 07-22-2014 Documentation of current medications Ricki Landrum MD Start: 07-21-2014 End: 07-21-2014 Follow Up Appt 1 year Ricki Landrum MD Start: 12-09-2012 End: 12-09-2012 DJN Thony Cole MD Work Phone: Start: 12-09-2012 End: 12-09-2012 Ecg routine ecg w/least 12 lds w/i&r Thony Cole MD Work Phone: Start: 12-09-2012 End: 01-14-2013 Echocardiography Thony Cole MD Work Phone: Start: 12-09-2012 End: 12-09-2012 Follow Up Appt 1 year Shanon Zuluaga Work Phone: Start: 10-12-2012 End: 12-01-2013 Lipid 1996 panel - Serum or Plasma Ricki Landrum MD Start: 10-11-2012 End: 12-01-2013 *Hepatic Function Panel Shanon Stevens Plan of Treatment Date Care Activity Detail Author Start: 03-20-2027 Lipid 1996 panel - S jodi or Plasma Lipid Screening [facility] Start: 03-20-2027 LIPID SCREEN LIPID SCREEN [facility] Start: 09-23-2026 LIPID SCREEN LIPID SCREEN [facility] Start: 08-26-2026 LIPID SCREEN LIPID SCREEN [facility] Start: 09-19-2025 Urine microalbumin profile [facility] Start: 06-15-2025 LIPID SCREEN LIPID SCREEN [facility] Start: 03-20-2025 DIABET[facility]CREEN [facility] Start: 03-20-2025 Diabetes Screening Diabetes Screenin g [facility] Start: 08-26-2024 DIABETES SCREEN DIABETES SCREEN [facility] Start: 05-16-2024 Colonoscopy COLONOSCOPY [facility] Start: 05-16-2024 COLORECTAL CANCER SCREENING COLORECTAL CANCER SCREENING [facility] Start: 07-17-2023 BP CONTROLLED (<130/80) BP CONTROLLE D (<130/80) [facility] Start: 05-01-2023 Mammography [facility] Start: 03-19-2023 DIABETES SCREEN DIABETES SCREEN [facility] Start: 03-04-2023 ANNUAL PCP TEAM PROCESS DEVELOPMENT ASSOCIATE MATT DISEASE VISIT ANNUAL PCP TEAM CHRONIC DISEASE VISIT [facility] Start: 03-04-2023 SHINGRIX VACCINE (2 of 3) BORGES GRIX VACCINE (2 of 3) [facility] Immunizations Immunization Date Immunization Notes Care Provider Santosh chester 03-20-2022 pneumococcal (PCV20) vaccine, 20 valent (PREVNAR 20) Pr Nurse Work Phone: [facility] Work Phone: 03-20-2022 pneumococcal Conjuga te, unspecified formulation Mi Nurse Work Phone: [facility] Work Phone: 01-21-2022 zoster vaccine recombinant Mee Dumas MA [facility] 12-16-2021 influenza, high dose seasonal, preservative-free Gale Romeo MD Work Phone: [facility] 12-16-2021 influenza virus vacc ine, unspecified formulation Janel Osman LUGGAGE ATTENDANT.PERITONEAL DIALYSIS REGISTERED NURSE Work Phone: [facility] 01-02-2020 influenza, seasonal, injectable Gale Romeo MD Work Phone: [facility] 01-01-2017 pneumococcal conjuga te vaccine, 13 valent Gale Romeo MD Work Phone: [facility] Work Phone: 12-22-2016 influenza, injectabl e, quadrivalent, contains preservative Gale Romeo MD Work Phone: [facility] 09-20-2015 tetanus toxoid, redu sheyla diphtheria toxoid, and acellular pertussis vaccine, adsorbed Gale Romeo MD Work Phone: [facility] Work Phone: 02-01-2015 pneumococcal polysaccharide vaccine, 23 valent Gale Romeo MD Work Phone: [facility] Work Phone: 12-27-2012 influenza virus vacc ine, unspecified formulation Gale Romeo MD Work Phone: [facility] 04-13-2012 zoster vaccine, live Gale Romeo MD Work Phone: [facility] 01-14-2005 influenza virus vacc ine, unspecified formulation Gale Romeo MD Work Phone: [facility] Work Phone: 09-28-2002 diphtheria and tetan us toxoids, adsorbed for pediatric use Gale Romeo MD Work Phone: [facility] Work Phone: Payers Date Payer Category Payer Medicare HU[employer]NA MEDICARE HU[employer]NA MEDICARE PPO [id number] 2019-Present [phone] [place] [address] PPO [id number] 2019 Medicare HUMANA MEDICARE HU[employer]NA MEDICARE PPO [id number] 2019-Present [phone] [place] [address] PPO [id number] 2019 Medicare [id number] Social History Date Type Detail Facility Start: 01-14-2011 End: 03-04-2022 Tobacco smoking status NHIS Never smoked tobacco [facility] Start: 07-23-2020 End: 07-16-2022 Alcohol intake Current drinker of alcohol (finding) [facility] Start: 01-03-2015 History SDOH Alcohol Comment Occasionally [facility] Start: 12-23-2010 End: 03-04-2022 Tobacco Comment No smokers in household [facility] Start: 1950 Sex Assigned At Not on file C [facility] Start: 07-26-2021 End: 08-05-2021 Exposure to SARS-CoV-2 (event) Yes [facility] Start: 08-03-2021 End: 08-13-2021 Exposure to SARS-CoV-2 (event) Not sure [facility] Start: 08-14-2021 End: 03-03-2022 History SDOH Alcohol Frequency 3 [facility] Start: 08-14-2021 End: 03-03-2022 History SDOH Alcohol Std Drinks 1 [facility] Start: 08-14-2021 History SDOH Social Connections Phone 98 [facility] Start: 08-14-2021 End: 03-03-2022 History SDOH Social Connections Get Together 2 [facility] Start: 1950 Sex Assigned At Female C [facility] Start: 01-14-2011 End: 03-04-2022 Tobacco use and exposure Smokeless tobacco non-user [facility] Start: 03-03-2022 History SDOH Social Connections Phone 5 [facility] Start: 03-02-2022 End: 07-16-2022 History of Social function [facility] Start: 03-02-2022 End: 07-16-2022 Social connection and isolation panel [facility] Do you belong to any clubs or organizations such as catholic groups, unions, fraternal or athletic groups, or school groups? No [facility] Are you now , , , , never or living with a partner? [facility] How often to you hav e a drink containing alcohol? Monthly or less [facility] How many standard dr inks containing alcohol do you have on a typical day? 1 or 2 [facility] How often do you hav e 6 or more drinks on 1 occasion? Never [facility] How hard is it for y ou to pay for the very basics like food, housing, medical care, and heating Not hard at all [facility] (I/We) worried whechad er (my/our) food would run out before (I/we) got money to buy more. Never true [facility] Start: 08-14-2021 Gender identity Identifies as female gender (finding) [facility] Clinical Notes 04-16-2012 to 03-20-2023 Telephone Encounter - Gale Romeo MD - 12/03/2022 8:09 PM EDTTelephone Encounter - Bharti Rutledge Ma - 12/03/2022 7:08 PM EDTPatricia Metcalf MD - 07/16/2022 2:00 PM EDTPatient Instructions Note Date & Type Note Facility 03-20-2023 Note HNO ID: [id number] Author: CECY WALLIS PA-C Service: ? Author Type: Physician Master Chef Type: Progress Notes Filed: 03/20/2023 14:38 Note Text: Kt Olvera is a 72 year old female here for a Medicare wellness visit. Your patient has already completed the old HRA questionnaire. They will receive the new one at their next visit when it is due. Medicare Health Risk Assessment In general, health is: Very good Concerns with balance: Not at all Concerns with teeth or dentures:Not at all Concerns with sexual function: Not at all [place] anxious, stressed, angry, irritable, lonely, isolated, or had thoughts of hurting themself: Not at all Has little interest or pleasure in doing things: Not at all Bothered by feeling down, depressed, or hopeless: Not at all Needs help with grocery shopping, cooking, housework, bathing, grooming, dressing, eating, sitting or standing, walking, using the toilet, handling finances, taking medications, using the telephone, or driving: No Following safety precautions in the home environment and vehicle: removed throw rugs from floors, installed grab bars in the bathroom, handrails in stairwells, having adequate lighting, wearing seatbelt at all times?: Yes Smokes cigarettes, vapes, or chew tobacco: No Eats healthy foods including fruits, vegetables, whole grains, and fiber-rich foods: More than half the days Number of days per week engages in exercise: 2 days Average alcohol consumption: Monthly or less Current Providers Specialists: I have reviewed specialist-related care of the patient in the medical record. Medical/Family history review Reviewed and updated problem list, medical/surgical/family/social history, medications, and allergies. Opioid use review Opioid Medications (last 90 days) Some values may be hidden. Unless noted otherwise, only the newest values recorded on each date are displayed. Opioid Medications No data to display. Depression screening Depression Screening PHQ-2 Score PHQ-9 Score 03/20/2023 0 - Depression screening tool completed and reviewed. Based on score and interview, patient is not at risk for depression. Screening tool discussed with patient, and I recommended no further intervention at this time. Cognitive screening Mini Cog Score: 5 Cognitive screening reviewed and no further action needed (score 3-5) Functional Observation Was the patient's timed Up AND Go test unsteady or ? 12 seconds? No Advance Care Planning Surrogate decision maker and/or advance care plan documented Measurements BP 122/66 Pulse 77 Temp 97 Resp 16 Ht 4' 11.646 (1.52m) Wt 142 lb (64.4kg) LMP 08/23/2009 BMI 28.06 kg/(m2). Additional screenings: No results found. Assessment/Plan Medicare annual wellness visit, subsequent (Z00.00) - Counseled on healthy diet and regular exercise - Fall avoidance information provided - Personalized prevention plan provided Chief Complaint Patient presents with: Medicare Wellness Exam HPI Kt Olvera is a 72 year old female who presents here today for extensive exam. Patient with hx hyperlipidemia, HTN, chronic pain, Elevated blood sugar, osteoporosis, and those as below. No specific concerns today. Past medical history, appointments, medications, allergies reviewed. Previous Medical History PAST MEDICAL HISTORY Diagnosis Date Age-related osteoporosis without current pathological fracture 07/17/2017 Ankle fracture 07/2011 Asthma, chronic cold weather Atrial fibrillation (HCC) resolved AVNRT (AV ronald re-entry tachycardia) 04/04/2016 Dr. Metcalf- [facility] Chronic pain syndrome 11/13/2021 Seeing pain management DDD (degenerative disc disease), lumbar 11/13/2021 Dyspareunia due to medical condition in female 10/18/2014 Elevated blood sugar 09/25/2021 Environmental allergies 2 injections 1x weekly Gynecologic exam normal 03/04/2022 Seeing [facility]: Dr. Pedroza. Herpes simplex Hyperlipidemia, mixed 04/04/2016 Hypertension, essential 01/31/2020 Infectious mononucleosis hepatitis 08/15/2016 Lesion of plantar nerve Medicare annual wellness visit, subsequent 03/04/2022 Medicare Part B: 12/14/2016 Last done 03/04/2022 Mild tricuspid regurgitation 02/23/2019 Mitral valve disorders resolved Other psoriasis Plantar fascial fibromatosis 10/02/2008 Renal cyst, left 04/26/2014 Skin cancer 2010 squamous cell Skin cancer screening 03/04/2022 [facility] Status post ablation operation for arrhythmia 04/04/2016 Seeing cardiology at Symptomatic menopausal or female climacteric states Tubular adenoma of colon 04/21/2016 8 mm tubular adenoma proximal ascending colon--04/21/16 Tubulovillous adenoma of rectum 06/30/2012 repeat colonoscopy q3 yrs Unspecified hemorrhoids without mention of complication Hemorrhoids Vaginal atrophy 10/18/2014 Previous Surgical History PAST SURGICAL HISTORY Procedure Laterali (more content not included)... [facility] 12-03-2022 Miscellaneous Notes The following approved medication requests have been transmitted electronically. Requested Prescriptions Signed Prescriptions Disp Refills hydroCHLOROthiazide 25 mg tablet 90 tablet 1 Sig: Take 1 tablet by mouth once daily. Authorizing Provider: GALE ROMEO MD Patient last visit with PCP 02/15/20 Follow up appointment scheduled 03/20/23 Bharti Rutledge Ma documented in this encounter [facility] 07-16-2022 Note HNO ID: [id number] Author: Patricia Metcalf MD Service: ? Author Type: Physician Type: Progress Notes Filed: 07/16/2022 4:27 PM Note Text: [facility] [facility] Department of Cardiovascular Medicine SECTION OF CARDIOVASCULAR IMAGING OUTPATIENT VISIT DATE July 16, 2022 OUTPATIENT VISIT TYPE ESTABLISHED PRIMARY CARE PHYSICIAN: Gale Romeo [address] [place] [address] REFERRING PHYSICIAN: Patricia Metcalf [address] [facility] [address] CHIEF COMPLAINT: Follow up HISTORY OF PRESENT ILLNESS: Ms. Olvera is a 71 year old female who presents today for routine follow-up. She has a history of AVNRT s/p ablation done in 2004, mild LV dysfunction, hypertension, and tricuspid valve regurgitation. She was last seen in office on 02/23/2019: 1. AVNRT s/p ablation - Doing well. No recurrent symptoms. 2. HTN - Well-controlled on HCTZ 3. Tricuspid regurgitation, mild - Monitor Since her last visit, she states that she is doing really good. She has not been exercising due to a torn meniscus and back pain. She denies any palpitations since her ablation. She denies chest pain, shortness of breath, orthopnea, cough, edema, palpitations, PND, lightheadedness or syncope. PAST CARDIAC HISTORY: Ms. Olvera is a 71 year old female who presents today for routine follow-up. She has a history of AVNRT s/p ablation done in 2004, mild LV dysfunction, hypertension, and tricuspid valve regurgitation. She was last seen on 02/23/2019. PAST MEDICAL HISTORY Diagnosis Date Age-related osteoporosis without current pathological fracture 07/17/2017 Ankle fracture 07/2011 Asthma, chronic cold weather Atrial fibrillation (HCC) resolved AVNRT (AV ronald re-entry tachycardia) (HCC) 04/04/2016 Dr. Metcalf- [facility] Chronic pain syndrome 11/13/2021 Seeing pain management DDD (degenerative disc disease), lumbar 11/13/2021 Dyspareunia due to medical condition in female 10/18/2014 Elevated blood sugar 09/25/2021 Environmental allergies 2 injections 1x weekly Gynecologic exam normal 03/04/2022 Seeing [facility]: Dr. Pedroza. Herpes simplex Hyperlipidemia, mixed 04/04/2016 Hypertension, essential 01/31/2020 Infectious mononucleosis hepatitis 08/15/2016 Lesion of plantar nerve Medicare annual wellness visit, subsequent 03/04/2022 Medicare Part B: 12/14/2016 Last done 03/04/2022 Mild tricuspid regurgitation 02/23/2019 Mitral valve disorders resolved Other psoriasis Plantar fascial fibromatosis 10/02/2008 Renal cyst, left 04/26/2014 Skin cancer 2010 squamous cell Skin cancer screening 03/04/2022 [facility] Status post ablation operation for arrhythmia 04/04/2016 Seeing cardiology at Symptomatic menopausal or female climacteric states Tubular adenoma of colon 04/21/2016 8 mm tubular adenoma proximal ascending colon--04/21/16 Tubulovillous adenoma of rectum 06/30/2012 repeat colonoscopy q3 yrs Unspecified hemorrhoids without mention of complication Hemorrhoids Vaginal atrophy 10/18/2014 PAST SURGICAL HISTORY Procedure Laterality Date 24 HR HOLTER_*FL COLONOSCOPY 04/18/2016 Repeat 04/2019 COLONOSCOPY FLX DX W/COLLJ SPEC WHEN PFRMD 04/2004 Colonoscopy COLONOSCOPY FLX DX W/COLLJ SPEC WHEN PFRMD 06/30/2012 Colonoscopy COLONOSCOPY FLX DX W/COLLJ SPEC WHEN PFRMD 05/17/2019 Colonoscopy HYSTEROSCOPY WBX WWO D AND C ANDOR POLYPECTOMY 06/2013 atrophy ICAR CATHETER ABLATION ATRIOVENTR NODE FUNCTION LAPAROSCOPIC APPENDECTOMY 03/05/2012 early appendicitis LAPAROSCOPIC SALPING/OOPHORECTOMY Left 06/19/2017 [facility] LAPS ABD PRTMANDOMENTUM DX W/WO SPEC BR/WA SPX Laparoscopy RSO LIG/TRNSXJ FLP TUBE ABDL/VAG APPR UNI/BI Tubal ligation NEUROPLASTY AND/TRANSPOS MEDIAN NRV CARPAL TUNNE Carpal tunnel decomp PAST SURGICAL HISTORY OF neuroma removed both feet PAST SURGICAL HISTORY OF skin cancer removed from left leg PAST SURGICAL HISTORY OF skin surgeries- skin scraping PAST SURGICAL HISTORY OF EP Ablation- Heart REPAIR MEDIAL OR LATERAL MENISCUS, TO R687 Right 12/23/2021 SIGMOIDOSCOPY FLX DX W/COLLJ SPEC BR/WA IF PFRMD 09/29/2012 Sigmoidoscopy, flexible SOCIAL HISTORY Social History Tobacco Use Smoking status: Never Smokeless tobacco: Never Tobacco comments: No smokers in household Substance Use Topics Alcohol use: Yes Comment: Occasionally Drug use: No FAMILY HISTORY Problem Relation Age of Onset Hypertension Mother Cancer Father PROSTATE, ANDSTROKE,HYPERTENSION AND HEART Hypertension Father Heart Father Stroke Father COPD Father Cancer Paternal Grandmother COL0N Colon Cancer Maternal Grandmother ALLERGIES: ALLERGIES Allergen Reactions Environmental [Othe* Other: See Comments nasal congestion/sneezing MEDICATIONS: hydroCHLOROthiazide 25 mg tabletTake 1 tablet by mouth once daily.Disp (more content not included)... [facility] 07-16-2022 History of Presen t illness Narrative Images from the original note were not included. [facility] Department of Cardiovascular Medicine SECTION OF CARDIOVASCULAR IMAGING OUTPATIENT VISIT DATE July 16, 2022 OUTPATIENT VISIT TYPE ESTABLISHED PRIMARY CARE PHYSICIAN: Gale Romeo [address] [place] [address] REFERRING PHYSICIAN: Patricia Metcalf [address] [facility] [address] CHIEF COMPLAINT: Follow up HISTORY OF PRESENT ILLNESS: Ms. Olvera is a 71 year old female who presents today for routine follow-up. She has a history of AVNRT s/p ablation done in 2004, mild LV dysfunction, hypertension, and tricuspid valve regurgitation. She was last seen in office on 02/23/2019: 1. AVNRT s/p ablation - Doing well. No recurrent symptoms. 2. HTN - Well-controlled on HCTZ 3. Tricuspid regurgitation, mild - Monitor Since her last visit, she states that she is doing really good. She has not been exercising due to a torn meniscus and back pain. She denies any palpitations since her ablation. She denies chest pain, shortness of breath, orthopnea, cough, edema, palpitations, PND, lightheadedness or syncope. PAST CARDIAC HISTORY: Ms. Olvera is a 71 year old female who presents today for routine follow-up. She has a history of AVNRT s/p ablation done in 2004, mild LV dysfunction, hypertension, and tricuspid valve regurgitation. She was last seen on 02/23/2019. PAST MEDICAL HISTORY Diagnosis Date Age-related osteoporosis without current pathological fracture 07/17/2017 Ankle fracture 07/2011 Asthma, chronic cold weather Atrial fibrillation (HCC) resolved AVNRT (AV ronald re-entry tachycardia) (HCC) 04/04/2016 Dr. Metcalf- [facility] Chronic pain syndrome 11/13/2021 Seeing pain management DDD (degenerative disc disease), lumbar 11/13/2021 Dyspareunia due to medical condition in female 10/18/2014 Elevated blood sugar 09/25/2021 Environmental allergies 2 injections 1x weekly Gynecologic exam normal 03/04/2022 Seeing [facility]: Dr. Pedroza. Herpes simplex Hyperlipidemia, mixed 04/04/2016 Hypertension, essential 01/31/2020 Infectious mononucleosis hepatitis 08/15/2016 Lesion of plantar nerve Medicare annual wellness visit, subsequent 03/04/2022 Medicare Part B: 12/14/2016 Last done 03/04/2022 Mild tricuspid regurgitation 02/23/2019 Mitral valve disorders resolved Other psoriasis Plantar fascial fibromatosis 10/02/2008 Renal cyst, left 04/26/2014 Skin cancer 2010 squamous cell Skin cancer screening 03/04/2022 [facility] Status post ablation operation for arrhythmia 04/04/2016 Seeing cardiology at Symptomatic menopausal or female climacteric states Tubular adenoma of colon 04/21/2016 8 mm tubular adenoma proximal ascending colon--04/21/16 Tubulovillous adenoma of rectum 06/30/2012 repeat colonoscopy q3 yrs Unspecified hemorrhoids without mention of complication Hemorrhoids Vaginal atrophy 10/18/2014 PAST SURGICAL HISTORY Procedure Laterality Date 24 HR HOLTER_*FL COLONOSCOPY 04/18/2016 Repeat 04/2019 COLONOSCOPY FLX DX W/COLLJ SPEC WHEN PFRMD 04/2004 Colonoscopy COLONOSCOPY FLX DX W/COLLJ SPEC WHEN PFRMD 06/30/2012 Colonoscopy COLONOSCOPY FLX DX W/COLLJ SPEC WHEN PFRMD 05/17/2019 Colonoscopy HYSTEROSCOPY WBX WWO D AND C ANDOR POLYPECTOMY 06/2013 atrophy ICAR CATHETER ABLATION ATRIOVENTR NODE FUNCTION LAPAROSCOPIC APPENDECTOMY 03/05/2012 early appendicitis LAPAROSCOPIC SALPING/OOPHORECTOMY Left 06/19/2017 [facility] LAPS ABD PRTM&OMENTUM DX W/WO SPEC BR/WA SPX Laparoscopy RSO LIG/TRNSXJ FLP TUBE ABDL/VAG APPR UNI/BI Tubal ligation NEUROPLASTY &/TRANSPOS MEDIAN NRV CARPAL TUNNE Carpal tunnel decomp PAST SURGICAL HISTORY OF neuroma removed both feet PAST SURGICAL HISTORY OF skin cancer removed from left leg PAST SURGICAL HISTORY OF skin surgeries- skin scraping PAST SURGICAL HISTORY OF EP Ablation- Heart REPAIR MEDIAL OR LATERAL MENISCUS, TO R687 Right 12/23/2021 SIGMOIDOSCOPY FLX DX W/COLLJ SPEC BR/WA IF PFRMD 09/29/2012 Sigmoidoscopy, flexible SOCIAL HISTORY Social History Tobacco Use Smoking status: Never Smokeless tobacco: Never Tobacco comments: No smokers in household Substance Use Topics Alcohol use: Yes Comment: Occasionally Drug use: No FAMILY HISTORY Problem Relation Age of Onset Hypertension Mother Cancer Father PROSTATE, &STROKE,HYPERTENSION AND HEART Hypertension Father Heart Father Stroke Father COPD Father Cancer Paternal Grandmother COL0N Colon Cancer Maternal Grandmother ALLERGIES: ALLERGIES Allergen Reactions Environmental [Othe* Other: See Comments nasal congestion/sneezing MEDICATIONS: hydroCHLOROthiazide 25 mg tablet^Take 1 tablet by mouth once daily.^Disp: 90 tablet^Rfl: 1 potassium chloride 20 mEq TbER^Take 1 tablet by mouth once daily.^Disp: 90 tablet^Rfl: 3 CALCIUM ORAL^Take by mouth as directed.^Disp: ^Rfl: CHOLECALCIFEROL, VITAMIN D3, ORAL^Take by mouth as directed.^Disp: ^Rfl: aspirin, enteric coated (ASPIRIN, ENTERIC COATED) 81 mg EC tablet^Take 81 mg by mouth once daily.^Disp: ^Rfl: MULTIVITAMIN ORAL^Take by mouth as directed.^Disp: ^Rfl: Lactobacillus combination no.8 (ADULT PROBIOTIC ORAL)^Take by mouth as directed.^Disp: ^Rfl: cetirizine HCl (ZYRTEC ORAL)^Take by mouth as directed.^Disp: ^Rfl: COMPOUNDED PRESCRIPTION^Allergy Injections, Two Injections once weekly.^Disp: ^Rfl: mometasone (ASMANEX TWISTHALER) 220 mcg (60 doses) aepb^Inhale 1 Puff as instructed twice daily.^Disp: 1 Inhaler^Rfl: 1 fluticasone (FLONASE) 50 mcg/actuation nasal spray^Use 2 Sprays in each nostril once daily.^Disp: 1 Bottle^Rfl: 0 REVIEW OF SYSTEMS: See HPI. PHYSICAL EXAMINATION: BP 125/64 Pulse 80 Ht 152.4 cm (5') Wt 64.4 kg (142 lb) LMP 08/23/2009 SpO2 100% BMI 27.73 kg/m General: Well appearing, in no acute distress. Skin: No clubbing, no cyanosis. Eyes: Extra ocular movements intact Oropharynx: Teeth in good repair. Neck: No jugular venous distention, no carotid bruits, carotids have a normal upstroke, no palpable thyromegaly. Lungs: Clear to auscultation bilaterally, no wheezing or rhonchi. Heart: Regular rhythm, PMI not displaced, S1, S2 normal, no S3, no S4, no heaves, no rub and no murmur. Abdomen: Soft, nontender, bowel sounds normal, no palpable organomegaly, no bruits. Extremities: No peripheral edema . Grade 2/4 distal pulses bilaterally. Neuro: Oriented to person, place and time, alert, cooperative, gait coordinated. CARDIOVASCULAR MEDICINE TESTING: Last ECHO Result Conclusion ECHO Collected: 07/16/2022 12:52 PM (Final result) Impression: CONCLUSIONS: - Exam indication: Routine surveillance of mild valvular regurgitation (>3yrs) - The left ventricle is small. Left ventricular systolic function is normal. EF = 64 5% (2D biplane) Normal left ventricular diastolic function. - The right ventricle is normal in size. Right ventricular systolic function is normal. - TR best appreciated in clips 117-119. - 1+ MR, 1+ TR - Exam was compared with the prior echocardiographic exam performed on 02/23/2019. There is no significant change. * * * Final * * * I have personally reviewed the Electrocardiogram and Echocardiogram. IMPRESSION: Ms. Olvera is a 71 year old female who presents today for routine follow-up. She has a history of AVNRT s/p ablation done in 2004, mild LV dysfunction, hypertension, and tricuspid valve regurgitation. PLAN AND RECOMMENDATIONS: 1. AVNRT s/p ablation - Doing well. No recurrent symptoms. 2. HTN - Well-controlled on HCTZ 3. Tricuspid regurgitation, mild - echo today shows mild TR, which is stable - follow-up echos as needed, based on symptoms I have told Kt Olvera to follow up with me at any time or to call me if she has any further questions. Follow-up as needed. I agree with the Chief Complaint, ROS, and Past Histories independently gathered by the clinical it desktop support specialist and the remaining scribed note accurately describes my personal service to the patient. By signing my name below, I, SARINA Steve, attest that this documentation has been prepared under the direction and in the presence of Dr. Metcalf. Electronically signed, SARINA Steve, Scribe July 16, 2022 10:40 AM CONTACT INFORMATION: Patricia Metcalf M.D., FACC, [facility], FASE Director of Cardiac MRI high school special education teacher [facility] Department of Cardiovascular Medicine and Radiology [facility]s Department of Cardiovascular Medicine Heart, Vascular and Thoracic [facility] Desk [id number] [place] [address] Office - [phone] extension [phone] Office Appointments: [phone] -[phone] extension [phone] documented in this encounter [facility] 06-02-2022 Miscellaneous Notes Patient has been identified by name and date of : Yes Requested Prescriptions Pending Prescriptions Disp Refills hydroCHLOROthiazide 25 mg tablet 90 tablet 1 Sig: Take 1 tablet by mouth once daily. RX INSTRUCTIONS: Patient aware RX will be sent to pharmacy. No need to notify patient. Mee Dumas MA Chhaya: 02/2022 Nov: 02/2023 Last refill: 09/2021 documented in this encounter [facility] 04-30-2022 Miscellaneous Notes Patient notified and voiced understanding. Mee Dumas MA Let patient know potassium much better on the replacement potassium pill. No changes needed. documented in this encounter [facility] 04-09-2022 Miscellaneous Notes Patient notified and voiced understanding. Mee Dumas MA Let patient know it looks like her water pill is causing her potassium to be low. We correct this by adding on a daily potasium pill. Script sent and order paced to get potassium in 2 weeks. The following approved medication requests have been transmitted electronically. Requested Prescriptions Signed Prescriptions Disp Refills potassium chloride 20 mEq TbER 90 tablet 3 Sig: Take 1 tablet by mouth once daily. Authorizing Provider: GALE ROMEO MD documented in this encounter [facility] 03-22-2022 Miscellaneous Notes Patient notified and voiced understanding. Mee Dumas MA Let patient know her blood sugar tests, UA, liver function, sodium and kidney functions were all ok. Her potassium is slightly low and want to recheck. Order placed. Lipid panel showed trigs slightly elevated at 220 (goal<150), HDL good at 60 and LDL good at 86. documented in this encounter [facility] 03-20-2022 History of Presen t illness Narrative Patient presents for Pneumococcal vaccine. Denies any problems at this time. Tolerated injection well. Liana Wright LPN documented in this encounter [facility] 03-07-2022 Miscellaneous Notes Patient notified and scheduled. Mee Dumas MA Received fax documentation that patient has not had the Pneumonia vaccine. Shingirx was given and immunization update. Dr Romeo recommended a nurse visit for the PCV-20. Left message for patient to contact office to assist with scheduling appointment. Mee Dumas MA documented in this encounter [facility] 03-04-2022 Instructions Gale Romeo MD - 03/04/2022 8:21 AM EST Consider getting the shingrix vaccine for the prevention of shingles from a local pharmacy Please bring in copies of living will and power of health care attorney for health care forms. documented in this encounter [facility] 03-04-2022 History of Presen t illness Narrative Medicare Yearly Visit Medical B eligibilty date 12/14/2016 Date of last exam NA PAST MEDICAL HISTORY Diagnosis Date Acute sinusitis Age-related osteoporosis without current pathological fracture 07/17/2017 Ankle fracture 07/2011 Asthma, chronic Atrial fibrillation (HCC) resolved AVNRT (AV ronald re-entry tachycardia) (HCC) 04/04/2016 Dr. Metcalf- [facility] Benign neoplasm of colon Chronic pain syndrome 11/13/2021 Seeing pain management DDD (degenerative disc disease), lumbar 11/13/2021 Dyspareunia due to medical condition in female 10/18/2014 Elevated blood sugar 09/25/2021 Environmental allergies 2 injections 1x weekly Herpes simplex Hyperlipidemia, mixed 04/04/2016 Hypertension, essential 01/31/2020 Infectious mononucleosis hepatitis 08/15/2016 Lesion of plantar nerve Medicare annual wellness visit, subsequent 03/04/2022 Medicare Part B: 12/14/2016 Last done 03/04/2022 Mild tricuspid regurgitation 02/23/2019 Mitral valve disorders resolved Other psoriasis Plantar fascial fibromatosis 10/02/2008 Renal cyst, left 04/26/2014 Skin cancer 2010 squamous cell Snoring Status post ablation operation for arrhythmia 04/04/2016 Seeing cardiology at Symptomatic menopausal or female climacteric states Tubular adenoma of colon 04/21/2016 8 mm tubular adenoma proximal ascending colon--04/21/16 Tubulovillous adenoma of rectum 06/30/12 repeat colonoscopy q3 yrs Unspecified hemorrhoids without mention of complication Hemorrhoids Vaginal atrophy 10/18/2014 PAST SURGICAL HISTORY Procedure Laterality Date 24 HR HOLTER_*FL COLONOSCOPY 04/18/2016 Repeat 04/2019 COLONOSCOPY FLX DX W/COLLJ SPEC WHEN PFRMD 04/2004 Colonoscopy COLONOSCOPY FLX DX W/COLLJ SPEC WHEN PFRMD 06/30/2012 Colonoscopy COLONOSCOPY FLX DX W/COLLJ SPEC WHEN PFRMD 05/17/2019 Colonoscopy HYSTEROSCOPY WBX WWO D AND C ANDOR POLYPECTOMY 06/2013 atrophy ICAR CATHETER ABLATION ATRIOVENTR NODE FUNCTION LAPAROSCOPIC APPENDECTOMY 03/05/12 early appendicitis LAPAROSCOPIC SALPING/OOPHORECTOMY Left 06/19/2017 [facility] KOVACS ABD PRTM&OMENTUM DX W/WO SPEC BR/WA SPX Laparoscopy RSO LIG/TRNSXJ FLP TUBE ABDL/VAG APPR UNI/BI Tubal ligation NEUROPLASTY &/TRANSPOS MEDIAN NRV CARPAL TUNNE Carpal tunnel decomp PAST SURGICAL HISTORY OF neuroma removed both feet PAST SURGICAL HISTORY OF skin cancer removed from left leg PAST SURGICAL HISTORY OF skin surgeries- skin scraping PAST SURGICAL HISTORY OF EP Ablation- Heart SIGMOIDOSCOPY FLX DX W/COLLJ SPEC BR/WA IF PFRMD 09/29/12 Sigmoidoscopy, flexible ALLERGIES: Environmental [Other] Medications reviewed: Yes FAMILY HISTORY Problem Relation Age of Onset Hypertension Mother Cancer Father PROSTATE, &STROKE,HYPERTENSION AND HEART Hypertension Father Heart Father Stroke Father COPD Father Cancer Paternal Grandmother COL0N Colon Cancer Maternal Grandmother SOCIAL HISTORY: Social History Tobacco Use Smoking status: Never Smokeless tobacco: Never Tobacco comments: No smokers in household Substance Use Topics Alcohol use: Yes Comment: Occasionally Drug use: No Kt is more or less sedentary occasionally exercising in the form of walking. She watches her diet for sodium, low fat and low cholesterol most of the time. List of current specialists seen: - [facility] - Optho - [facility] [employer] [facility]ABRICATOR: Dr. Hernández - Dr. Pete Richards End of Live Planning discussed including patients advanced directive wishes: Yes I am willing to follow Kt's advanced directives. PHQ-2 / Depression screen Depression Screening 08/19/2016 07/12/2018 06/04/2020 03/04/2022 PHQ-2 Score 0 0 0 0 PHQ-9 Score - - 0 - Depression screening tool completed and reviewed. Based on score and interview, patient is not at risk for depression. Screening tool discussed with patient, and I recommended no further intervention at this time. Functional Ability/Safety Screen 1. Was the patient's timed Up and Go test unsteady or longer than 30 seconds? No 2. Does the patient need help with the phone, transportation, shopping,preparing meals, housework, laundry, medications or managing money? No 3. Does your home have rugs in the hallway, lack of grab bars in the bathroom (Y), lack of handrails on the stairs or have poor lighting? No Hearing Evaluation: normal PHYSICAL EXAM BP 134/70 Pulse 80 Resp 16 Ht 152.5 cm (5' 0.04 ) Wt 67.6 kg (149 lb) LMP 10/17/2009 SpO2 96% BMI 29.06 kg/m Alert and oriented X 3: YES Body mass index is 29.06 kg/m . Visual acuity: seeing optho See below ASSESSMENT/PLAN: 71 year old female The following prevention plan was discussed during the office visit and provided to the patient: See below Gale Romeo MD Chief Complaint Patient presents with: Medicare Wellness Exam HPI Kt Olvera is a 71 year old female who presents here today for extensive Visit. She has hx of HTN, HLP, Tachycardia, elevated blood sugar, AV node re-entry s/p ablation, osteoporosis, lumbar DDD as well as those addressed below and in ROS. Patient has been doing well. Just had a series of low back injections per [facility]. Past medical history, appointments, medications, allergies reviewed. Previous Medical History PAST MEDICAL HISTORY Diagnosis Date Acute sinusitis Age-related osteoporosis without current pathological fracture 07/17/2017 Ankle fracture 07/2011 Asthma, chronic Atrial fibrillation (HCC) resolved AVNRT (AV ronald re-entry tachycardia) (HCC) 04/04/2016 Dr. Metcalf- [facility] Benign neoplasm of colon Chronic pain syndrome 11/13/2021 Seeing pain management DDD (degenerative disc disease), lumbar 11/13/2021 Dyspareunia due to medical condition in female 10/18/2014 Elevated blood sugar 09/25/2021 Environmental allergies 2 injections 1x weekly Herpes simplex Hyperlipidemia, mixed 04/04/2016 Hypertension, essential 01/31/2020 Infectious mononucleosis hepatitis 08/15/2016 Lesion of plantar nerve Mild tricuspid regurgitation 02/23/2019 Mitral valve disorders resolved Other psoriasis Plantar fascial fibromatosis 10/02/2008 Renal cyst, left 04/26/2014 Skin cancer 2010 squamous cell Snoring Status post ablation operation for arrhythmia 04/04/2016 Seeing cardiology at Symptomatic menopausal or female climacteric states Tubular adenoma of colon 04/21/2016 8 mm tubular adenoma proximal ascending colon--04/21/16 Tubulovillous adenoma of rectum 06/30/12 repeat colonoscopy q3 yrs Unspecified hemorrhoids without mention of complication Hemorrhoids Vaginal atrophy 10/18/2014 Previous Surgical History PAST SURGICAL HISTORY Procedure Laterality Date 24 HR HOLTER_*FL COLONOSCOPY 04/18/2016 Repeat 04/2019 COLONOSCOPY FLX DX W/COLLJ SPEC WHEN PFRMD 04/2004 Colonoscopy COLONOSCOPY FLX DX W/COLLJ SPEC WHEN PFRMD 06/30/2012 Colonoscopy COLONOSCOPY FLX DX W/COLLJ SPEC WHEN PFRMD 05/17/2019 Colonoscopy HYSTEROSCOPY WBX WWO D AND C ANDOR POLYPECTOMY 06/2013 atrophy ICAR CATHETER ABLATION ATRIOVENTR NODE FUNCTION LAPAROSCOPIC APPENDECTOMY 03/05/12 early appendicitis LAPAROSCOPIC SALPING/OOPHORECTOMY Left 06/19/2017 [facility]APS ABD PRTM&OMENTUM DX W/WO SPEC BR/WA SPX Laparoscopy RSO LIG/TRNSXJ FLP TUBE ABDL/VAG APPR UNI/BI Tubal ligation NEUROPLASTY &/TRANSPOS MEDIAN NRV CARPAL TUNNE Carpal tunnel decomp PAST SURGICAL HISTORY OF neuroma removed both feet PAST SURGICAL HISTORY OF skin cancer removed from left leg PAST SURGICAL HISTORY OF skin surgeries- skin scraping PAST SURGICAL HISTORY OF EP Ablation- Heart SIGMOIDOSCOPY FLX DX W/COLLJ SPEC BR/WA IF PFRMD 09/29/12 Sigmoidoscopy, flexible Family History FAMILY HISTORY Problem Relation Age of Onset Hypertension Mother Cancer Father PROSTATE, &STROKE,HYPERTENSION AND HEART Hypertension Father Heart Father Stroke Father COPD Father Cancer Paternal Grandmother COL0N Colon Cancer Maternal Grandmother Patient Allergies ALLERGIES Allergen Reactions Environmental [Othe* nasal congestion/sneezing Current Medications Current Outpatient Medications on File Prior to Visit Medication Sig hydroCHLOROthiazide (HYDRODIURIL, ESIDRIX) 25 mg tablet Take 1 tablet by mouth once daily. CALCIUM ORAL Take by mouth as directed. CHOLECALCIFEROL, VITAMIN D3, ORAL Take by mouth as directed. aspirin, enteric coated (ASPIRIN, ENTERIC COATED) 81 mg EC tablet Take 81 mg by mouth once daily. MULTIVITAMIN ORAL Take by mouth as directed. Lactobacillus combination no.8 (ADULT PROBIOTIC ORAL) Take by mouth as directed. cetirizine HCl (ZYRTEC ORAL) Take by mouth as directed. COMPOUNDED PRESCRIPTION Allergy Injections, Two Injections once weekly. mometasone (ASMANEX TWISTHALER) 220 mcg (60 doses) aepb Inhale 1 Puff as instructed twice daily. fluticasone (FLONASE) 50 mcg/actuation nasal spray Use 2 Sprays in each nostril once daily. Current Facility-Administered Medications on File Prior to Visit Medication perflutren lipid microspheres 1.3 mL in NaCl (PF) 0.9% 10 mL injection (DEFINITY) sodium chloride 0.9 % (flush) 10 mL (BD POSIFLUSH) Social History Social History Tobacco Use Smoking status: Never Smokeless tobacco: Never Tobacco comments: No smokers in household Substance Use Topics Alcohol use: Yes Comment: Occasionally Drug use: No Review of Symptoms REVIEW OF SYSTEMS GENERAL: No weight loss, malaise or fevers HEENT: Negative for frequent or significant headaches, No changes in hearing or vision, no nose bleeds or other nasal problems NECK: Negative for lumps, goiter, pain and significant neck swelling RESPIRATORY: Negative for cough, hemoptysis, wheezing, COPD, dyspnea or shortness of breath CARDIOVASCULAR: Negative for chest pain, leg swelling, hypertension, CHF or palpitations GI: No nausea, vomiting, or diarrhea, No heartburn or reflux symptoms, and no blood : No history of dysuria, blood MUSCULOSKELETAL: Negative for new or changes in her typical joint pain or swelling, back pain or muscle pain SKIN: Negative for lesions, rash, and itching PSYCH: Negative for sleep disturbance, mood disorder and recent psychosocial stressors HEMATOLOGY/LYMPHOLOGY: Negative for prolonged bleeding, bruising easily or swollen nodes ENDOCRINE: Negative for cold or heat intolerance, polyuria, polydipsia and goiter NEURO: No history of headaches, syncope, paralysis, seizures or tremors EXAM: BP 134/70 Pulse 80 Resp 16 Ht 152.5 cm (5' 0.04 ) Wt 67.6 kg (149 lb) LMP 10/17/2009 SpO2 96% BMI 29.06 kg/m General Appearance: Well appearing, alert, in no acute distress, well-hydrated, well nourished.. Skin: Skin color, texture, turgor normal, no suspicious rashes . Has a few lesions on her face and will be seeing Derm. Head: Normocephalic, no masses, lesions, tenderness or abnormalities. Eyes: Anicteric sclera. Pupils are equally round and reactive to light. Extraocular movements are intact. . Ears: External ears, TM's normal, canals clear. Neck: Supple, no adenopathy; thyroid symmetric, normal size, no bruits. Lungs: Lungs clear to auscultation. No wheezing, rhonchi, rales.. Heart: RRR without murmur, gallop, or rubs. No ectopy. Abdomen: Normal abdominal exam, Abdomen soft, non-tender. Bowel sounds normal. No masses, organomegaly. Extremities: No deformities, edema, skin discoloration, Good capillary refill. . Musculoskeletal: Muscular strength intact, No joint swelling, deformity, or tenderness. Peripheral Pulses: Normal. Neurologic: Gait normal. Reflexes normal and symmetric. Sensation to light touch and crainal nerves 2-12 intact.. Health Maintenance List SHINGRIX VACCINE(2 of 3) due on 06/08/2012 PNEUMOCOCCAL: 65+(3) due on 02/02/2020 COVID-19 VACCINE(4 - Booster for Pfizer series) due on 02/21/2021 ADVANCE DIRECTIVE DISCUSSION Never done DEPRESSION ASSESSMENT Never done MAMMOGRAM due on 05/11/2021 INFLUENZA(1) due on 11/14/2021 BP CONTROLLED (<130/80) due on 08/05/2022 ANNUAL PCP TEAM CHRONIC DISEASE VISIT due on 08/14/2022 COLORECTAL CANCER SCREENING due on 05/16/2024 DIABETES SCREEN due on 08/26/2024 DTAP,TDAP,TD(3 - Td or Tdap) due on 09/19/2025 LIPID SCREEN due on 09/23/2026 BONE DENSITY Completed HEPATITIS C SCREENING Completed Data reviewed Component Latest Ref Rng & Units 08/26/2021 09/23/2021 WBC 3.70 - 11.00 k/uL 7.61 RBC 3.90 - 5.20 m/uL 4.23 Hemoglobin 11.5 - 15.5 g/dL 12.4 Hematocrit 36.0 - 46.0 % 37.7 MCV 80.0 - 100.0 fL 89.1 MCH 26.0 - 34.0 pg 29.3 MCHC 30.5 - 36.0 g/dL 32.9 RDW-CV 11.5 - 15.0 % 13.2 Platelet Count 150 - 400 k/uL 344 MPV 9.0 - 12.7 fL 10.1 Neut% % 54.2 Abs Neut (ANC) 1.45 - 7.50 k/uL 4.12 Lymph% % 37.3 Abs Lymph 1.00 - 4.00 k/uL 2.84 [place]% % 5.1 Abs [place] <0.87 k/uL 0.39 Eosin% % 2.6 Abs Eosin <0.46 k/uL 0.20 Baso% % 0.5 Abs Baso <0.11 k/uL 0.04 Immature Gran % % 0.3 IMMATURE GRANS (ABS) <0.10 k/uL <0.03 NRBC /100 WBC 0.0 Absolute nRBC <0.01 k/uL <0.01 DTYPE Auto Protein, Total 6.3 - 8.0 g/dL 6.8 Albumin 3.9 - 4.9 g/dL 4.1 Calcium 8.5 - 10.2 mg/dL 9.7 Bilirubin, Total 0.2 - 1.3 mg/dL 0.4 Alkaline Phosphatase 34 - 123 U/L 80 AST 13 - 35 U/L 18 ALT 7 - 38 U/L 15 Glucose 74 - 99 mg/dL 81 BUN 7 - 21 mg/dL 21 Creatinine 0.58 - 0.96 mg/dL 0.80 Sodium 136 - 144 mmol/L 137 Potassium 3.7 - 5.1 mmol/L 3.7 Chloride 97 - 105 mmol/L 102 CO2 22 - 30 mmol/L 24 Anion Gap 9 - 18 mmol/L 11 eGFR >=60 mL/min/1.73m 80 Cholesterol, Total <200 mg/dL 177 Triglyceride <150 mg/dL 167 (H) HDL Cholesterol >39 mg/dL 49 Non HDL Cholesterol <130 mg/dL 128 Fasting Time hrs 12 VLDL Cholesterol <30 mg/dL 33 (H) TC:HDL Ratio <5.10 3.61 LDL Cholesterol <100 mg/dL 95 LDL:HDL Ratio <2.54 1.94 Total Cholesterol, Nonfasting <200 mg/dL 272 (H) Triglycerides, Nonfasting <150 mg/dL 160 (H) HDL Cholesterol, Nonfasting >39 mg/dL 48 LDL Cholesterol, Nonfasting <100 mg/dL 192 (H) Non HDL Cholesterol, Nonfasting <130 mg/dL 224 (H) VLDL Cholesterol, Nonfasting <30 mg/dL 32 (H) Total Chol/HDL Ratio, Nonfasting <5.10 mg/dL 5.67 (H) LDL/HDL Ratio, Nonfasting <2.54 mg/dL 4.00 (H) A/P ASSESSMENT/PLAN: 1. Medicare annual wellness visit, subsequent - ICD9: V70.0, ICD10: Z00.00 (primary diagnosis) - Counseled on healthy diet and regular exercise - Calcium intake with supplements or by diet of 1000 mg/day for under 50, 0117-7599 mg/day for 50+ - Follow up for annual exam in one year - will get date of first Shingrix vaccine and what pneumonia vaccine she just received from [facility]. 2. Hypertension, essential - ICD9: 401.9, ICD10: I10 - good control - Continue current medication(s) - Recommended regular aerobic exercise. - Recommend home blood pressure monitoring, to bring results in on next visit - Goal of BP <130/80 3. Hyperlipidemia, mixed - ICD9: 272.2, ICD10: E78.2 - to be determined upon return of lab results - Encouraged following a low fat, low cholesterol diet. - Discussed the benefits of regular aerobic exercise and weight loss. - Encouraged following a low carbohydrate, healthy oil intake diet. - Continue current therapy. 4. AVNRT (AV ronald re-entry tachycardia) (HCC) - ICD9: 427.89, ICD10: I47.1 - clinically stable and follows with Cardio. 5. 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 6. Chronic pain syndrome - ICD9: 338.4, ICD10: G89.4 - seeing [facility] 8. Living will in place - ICD9: V49.89, ICD10: Z78.9 - patient to bring in copies 9. Elevated blood sugar - ICD9: 790.29, ICD10: R73.9 - await A1c. F/u in a year or sooner if issue. I spent a total of 40 minutes on the date of the service which included preparing to see the patient, [id number] patient care, completing clinical documentation, performing a medically appropriate examination, counseling and educating the patient/family/caregiver and ordering medications, tests, or procedures. Gale Romeo MD documented in this encounter [facility] 12-17-2021 Miscellaneous Notes Patient called and she is requesting the hydrochlorothiazide; she did not know she was sent this message. I called and spoke to Shruthi at [facility] who confirmed she has refill from 09/13/21. Notified the patient. documented in this encounter [facility] 12-13-2021 Miscellaneous Notes Patient still has one additional refill available. Notified patient via mychart. Mee Dumas MA Patient has been identified by name and date of : Yes Requested Prescriptions Pending Prescriptions Disp Refills hydroCHLOROthiazide (HYDRODIURIL, ESIDRIX) 25 mg tablet 90 tablet 1 Sig: Take 1 tablet by mouth once daily. RX INSTRUCTIONS: Patient aware RX will be sent to pharmacy. No need to notify patient. [facility] in this [facility] 11-14-2021 Miscellaneous Notes Patient notified and will filler picker placard. Mee Dumas MA Letter ready Patient calls and states that she has a hard time walking far. Patient just recently had a MRI ordered by Dr. Francis and it showed that her back is bone to bone. Patient asking if provider can write a letter for handicap placard. Patient does have appointment with pain management in middle of November. If agreeable to letter patient can filler picker. Please review and advise, Li Arroyo RN documented in this encounter [facility] 09-25-2021 Miscellaneous Notes Pt notified and voiced understanding. Tana French Ma Let patient know labs and urine testing placed that she can do prior to her visit in Feb. Patient notified and voiced understanding. She is wondering if she will need to have the cholesterol checked again in February before her next appointment. Mee Dumas MA Let patient know lipid panel showed Trigs slightly elevated at 167 (goal<150) HDL good at 49 and LDL good at 95. Advise work on reduced fat in diet. documented in this encounter [facility] 09-13-2021 Miscellaneous Notes Refill sent. Cecy Wallis PA-C Spoke with patient and assured that Dr. Romeo is listed as PCP and she is scheduled for Wellness Exam in February. After reviewing chart. It appears patient had no showed in 05/2021 so pharmacy was contacted and cancelled the remaining refills for this medication. Patient has been seen since 07/2021 and needs refills. Mee Dumas MA Please review 07/17/21 encounter . Patient is mad that her script was canceled. Said she is now a patient of Cecy Valle; yet Dr. Romeo is noted as pcp. Please advise patient if Cecy can be designated as her pcp. If not, she would like to establish with Dr. Benavidez. Please call her at [phone]. Patient has been identified by name and date of : Yes Pending Prescriptions Disp Refills HYDROCHLOROTHIAZIDE 25 MG TABLET 90 tablet 3 Sig: Take 1 tablet by mouth once daily. ERNESTO: No RX INSTRUCTIONS: Patient aware RX will be sent to pharmacy. No need to notify patient. Michelle Eaton documented in this encounter [facility] 09-11-2021 Miscellaneous Notes Patient was notified Bharti Rutledge Ma Order placed. Patient calls in to check on status of request. Explained request for urinalysis and culture is pending. Patient asking for a call back at [phone] once provider responds to request. Leonora Armendariz RN Patient calling wanted an order for urine test. Patient said she feels like the UTI did not go away she was treated for recently. Offered appt or urgent care instead of waiting for culture to return from the lab. Patient did not want to go to urgent care today, she said she had 45 minutes to take of this. Pending orders if wanted, needs diagnosis. Please advise Please see result TE on 08/27 Bharti Rutledge Ma Patient Kt was seen and treated for UTI recently, she is having same symptoms. Please advise if she can come in for urinalysis this morning, . documented in this encounter [facility] 08-27-2021 Miscellaneous Notes Pt notified of same. Pt verbalizes understanding. Vicente Mares LPN I will order a fasting panel, but unlikely to make a difference. She has always had elevated cholesterol. Prescription sent. Patient returned call and went over results, notes from Cecy SWAN with understanding. Patient said her lab work was done non fasting, she would want to do a fasting cholesterol test please. Patient said she is having urge to void frequently, had taken a 3 day rx from [facility] but thinks it is not cleared. Patient [facility]. Left message for patient to call office back Bharti Rutledge Ma Let patient know that her cholesterol is high. Total at 272 with goal under 200. LDL is 192 with goal under 100. I recommend starting lipitor. Is this something she would be agreeable to? Urine shows some leuks/wbc. Any s/s of UTI. If yes will treat. If no, then have her monitor. Rest of labs okay. Cecy Wallis PA-C documented in this encounter [facility] 08-14-2021 History of Presen t illness Narrative [facility] VISIT MyChart video visit was used for evaluation of this patient. Patient consents to visit. Patient's location: [place] Chief Complaint Patient presents with: Follow Up HPI Kt Olvera is a 70 year old female who presents here today via virtual for discussing osteoporosis. . Patient was dx with osteoporosis in 2018 however she does not recall being told this. Recent DXA does show worsening bone denisity. Patient is willing to start treatment. Past medical history, appointments, medications, allergies reviewed. Previous Medical History PAST MEDICAL HISTORY Diagnosis Date Acute sinusitis Ankle fracture 07/2011 Asthma, chronic Atrial fibrillation (HCC) resolved Benign neoplasm of colon Environmental allergies 2 injections 1x weekly Herpes simplex Lesion of plantar nerve Mitral valve disorders resolved Other psoriasis Renal cyst, left 04/26/2014 Skin cancer 2010 squamous cell Snoring Symptomatic menopausal or female climacteric states Tubular adenoma of colon 04/21/2016 8 mm tubular adenoma proximal ascending colon--04/21/16 Tubulovillous adenoma of rectum 06/30/12 repeat colonoscopy q3 yrs Unspecified hemorrhoids without mention of complication Hemorrhoids Previous Surgical History PAST SURGICAL HISTORY Procedure Laterality Date 24 HR HOLTER_*FL COLONOSCOPY 04/18/2016 Repeat 04/2019 COLONOSCOPY FLX DX W/COLLJ SPEC WHEN PFRMD 04/2004 Colonoscopy COLONOSCOPY FLX DX W/COLLJ SPEC WHEN PFRMD 06/30/2012 Colonoscopy COLONOSCOPY FLX DX W/COLLJ SPEC WHEN PFRMD 05/17/2019 Colonoscopy HYSTEROSCOPY WBX WWO D AND C ANDOR POLYPECTOMY 06/2013 atrophy ICAR CATHETER ABLATION ATRIOVENTR NODE FUNCTION LAPAROSCOPIC APPENDECTOMY 03/05/12 early appendicitis LAPAROSCOPIC SALPING/OOPHORECTOMY Left 06/19/2017 [facility] L[facility] ABD PRTM&OMENTUM DX W/WO SPEC BR/WA SPX Laparoscopy RSO LIG/TRNSXJ FLP TUBE ABDL/VAG APPR UNI/BI Tubal ligation NEUROPLASTY &/TRANSPOS MEDIAN NRV CARPAL TUNNE Carpal tunnel decomp PAST SURGICAL HISTORY OF neuroma removed both feet PAST SURGICAL HISTORY OF skin cancer removed from left leg PAST SURGICAL HISTORY OF skin surgeries- skin scraping PAST SURGICAL HISTORY OF EP Ablation- Heart SIGMOIDOSCOPY FLX DX W/COLLJ SPEC BR/WA IF PFRMD 09/29/12 Sigmoidoscopy, flexible Family History FAMILY HISTORY Problem Relation Age of Onset Hypertension Mother Cancer Father PROSTATE, &STROKE,HYPERTENSION AND HEART Hypertension Father Heart Father Stroke Father COPD Father Cancer Paternal Grandmother COL0N Colon Cancer Maternal Grandmother Patient Allergies ALLERGIES Allergen Reactions Environmental [Othe* nasal congestion/sneezing Current Medications Current Outpatient Medications on File Prior to Visit Medication Sig CALCIUM ORAL Take by mouth as directed. CHOLECALCIFEROL, VITAMIN D3, ORAL Take by mouth as directed. aspirin, enteric coated (ASPIRIN, ENTERIC COATED) 81 mg EC tablet Take 81 mg by mouth once daily. MULTIVITAMIN ORAL Take by mouth as directed. Lactobacillus combination no.8 (ADULT PROBIOTIC ORAL) Take by mouth as directed. cetirizine HCl (ZYRTEC ORAL) Take by mouth as directed. hydroCHLOROthiazide (HYDRODIURIL, ESIDRIX) 25 mg tablet Take 1 tablet by mouth once daily. COMPOUNDED PRESCRIPTION Allergy Injections, Two Injections once weekly. mometasone (ASMANEX TWISTHALER) 220 mcg (60 doses) aepb Inhale 1 Puff as instructed twice daily. fluticasone (FLONASE) 50 mcg/actuation nasal spray Use 2 Sprays in each nostril once daily. Current Facility-Administered Medications on File Prior to Visit Medication perflutren lipid microspheres 1.3 mL in NaCl (PF) 0.9% 10 mL injection (DEFINITY) sodium chloride 0.9 % (flush) 10 mL (BD POSIFLUSH) Social History Social History Tobacco Use Smoking status: Never Smoker Smokeless tobacco: Never Used Tobacco comment: No smokers in household Substance Use Topics Alcohol use: Yes Comment: Occasionally Drug use: No Review of Symptoms REVIEW OF SYSTEMS GENERAL: No weight loss, malaise or fevers EXAM: LMP 10/17/2009 Any vital signs collected today were done so using patient's home equipment, otherwise no vital signs due to distant health visit. PHYSICAL EXAMINATION: VIDEO EXAM: (if done, performed via video enabled technology) GENERAL: alert and appropriate, in no distress, well-hydrated, well nourished and happy, smiling, interactive NECK: full ROM, no cervical LNs noted RESPIRATORY: breathing non-labored CHEST: equal chest rise with normal respiratory effort Health Maintenance List HEPATITIS C SCREENING Never done SHINGRIX VACCINE(2 of 3) due on 06/08/2012 PNEUMOCOCCAL: 65+(2 - PPSV23 or PCV20) due on 02/02/2020 ADVANCE DIRECTIVE DISCUSSION Never done COVID-19 VACCINE(4 - Booster for Pfizer series) due on 04/29/2021 MAMMOGRAM due on 05/11/2021 DEPRESSION SCREENING due on 06/04/2021 INFLUENZA(Season Ended) due on 11/14/2021 ANNUAL PCP TEAM CHRONIC DISEASE VISIT due on 08/05/2022 BP CONTROLLED (<130/80) due on 08/05/2022 DIABETES SCREEN due on 03/19/2023 COLORECTAL CANCER SCREENING due on 05/16/2024 LIPID SCREEN due on 06/15/2025 DTAP,TDAP,TD(3 - Td or Tdap) due on 09/19/2025 BONE DENSITY Completed Data reviewed LUMBAR SPINE: The bone mineral density from L1 through L4 is 1.205 grams per square centimeter which yields a T-score of 1.4. Z score of 3.5. LEFT HIP: The bone mineral density of the total region of the hip is 0.800 grams per square centimeter which yields a T-score of -1.2. Z score 0.3. LEFT FEMORAL NECK: The bone mineral density of the femoral neck is 0.578 grams per square centimeter which yields a T-score of -2.4. Z score of-0.7. RIGHT HIP: The bone mineral density of the total region of the hip is 0.824 grams per square centimeter which yields a T-score of -1.0. Z score is 0.5. RIGHT FEMORAL NECK: The bone mineral density of the femoral neck is 0.554 grams per square centimeter which yields a T-score of -2.7. Z score of-0.9. ASSESSMENT/PLAN: 1. Age-related osteoporosis without current pathological fracture - ICD9: 733.01, ICD10: M81.0 Patient willing to start tx however in discussion about the possible SE and risks of fosamax, patient mention that she is currently having some dental issues that she is seeing a specialist about. i'm hesitant to start fosamax without her dentist's or specialist's input. We may need to set her up with endo for other tx options. She will reach out to her dentists and get back with me with their responses. - Reviewed the need for Calcium and Vitamin D supplements and weight bearing exercise as tolerated Cecy Wallis PA-C documented in this encounter [facility] 08-13-2021 Miscellaneous Notes Noted. Patient notified of results and provider's instructions. Patient has many questions. Patient scheduled virtual visit with provider tomorrow morning. Li Arroyo RN Left message for pt to contact office. Vicente Mares LPN Let patient know that bone density does show slightly worsening osteoporosis. Is she willing to start fosamax? She can schedule a quick VV to discuss if she has questions. Cecy Wallis PA-C documented in this encounter [facility] 08-13-2021 History of Presen t illness Narrative Radiology Service Progress Note PATIENT NAME: Kt Olvera DATE OF SERVICE: August 13, 2021 TIME: 9:26 AM PATIENT IDENTITY VERIFICATION COMPLETED USING TWO (2) IDENTIFIERS: Name and Date of confirmed by patient verbally. FALL SCREENING: Has the patient had 2 falls in the last year or 1 fall with injury or currently using an Ambulatory Assistive Device (Walker, Cane, Wheelchair, Crutches, etc.)? No PATIENT GENDER DATA: Female. status: : No status: NO. PATIENT RELEVANT IMPLANT DATA REVIEWED: Not Applicable RADIOLOGY DEPARTMENT: Bone Density PERIPHERAL IV DATA: Not applicable SIGNED BY: RT Xochitl(R) August 13, 2021 9:26 AM documented in this encounter [facility] 08-05-2021 Instructions Cecy Wallis PA-C - 08/05/2021 8:28 AM EDT You can schedule your pneumonia vaccine. BONE MINERAL DENSITY PATIENT INSTRUCTIONS ========= Bone mineral density testing measures the amount of calcium in certain parts of your bones. This information determines how strong your bones are. The test is used to detect osteoporosis, a disease in which the bone's mineral content and density are low, increasing a person's risk of fractures. The lumbar spine (lower back) and the hip are the skeletal sites usually examined. For the test, remember that: 1. You cannot take this test if you are . 2. Eat a normal diet on the day of the test. 3. Take your medications as you normally would. 4. DO NOT take calcium supplements (such as Tums) for 24 hours before the test. 5. On the day of the test, leave valuables (jewelry or credit cards) at home. 6. The test should be performed prior to oral, rectal or IV contrast studies, or at least 7 days after any of these studies. For the test, you may be asked to wear a hospital gown. You will lie on your back, on a padded table, in a comfortable position. Generally, you can resume your usual activities immediately. documented in this encounter [facility] 08-05-2021 History of Presen t illness Narrative Chief Complaint Patient presents with: Recheck HPI Kt Olvera is a 70 year old female who presents here today for Chronic Medical Conditions and to establish care.. Patient was a previous patient of Dr. Richards. Has not been seen to establish care yet. She has hx of HTN, HLP, Tachycardia, osteoporosis (patient wasn't aware of this), and those as below. She is currently having some issues with her teeth and jaw bones. She is also seeing Dr. Pete Richards for breast pain. Past medical history, appointments, medications, allergies reviewed. Previous Medical History PAST MEDICAL HISTORY Diagnosis Date Acute sinusitis Ankle fracture 07/2011 Asthma, chronic Atrial fibrillation (HCC) resolved Benign neoplasm of colon Environmental allergies 2 injections 1x weekly Herpes simplex Lesion of plantar nerve Mitral valve disorders resolved Other psoriasis Renal cyst, left 04/26/2014 Skin cancer 2010 squamous cell Snoring Symptomatic menopausal or female climacteric states Tubular adenoma of colon 04/21/2016 8 mm tubular adenoma proximal ascending colon--04/21/16 Tubulovillous adenoma of rectum 06/30/12 repeat colonoscopy q3 yrs Unspecified hemorrhoids without mention of complication Hemorrhoids Previous Surgical History PAST SURGICAL HISTORY Procedure Laterality Date 24 HR HOLTER_*FL COLONOSCOPY 04/18/2016 Repeat 04/2019 COLONOSCOPY FLX DX W/COLLJ SPEC WHEN PFRMD 04/2004 Colonoscopy COLONOSCOPY FLX DX W/COLLJ SPEC WHEN PFRMD 06/30/2012 Colonoscopy COLONOSCOPY FLX DX W/COLLJ SPEC WHEN PFRMD 05/17/2019 Colonoscopy HYSTEROSCOPY WBX WWO D AND C ANDOR POLYPECTOMY 06/2013 atrophy ICAR CATHETER ABLATION ATRIOVENTR NODE FUNCTION LAPAROSCOPIC APPENDECTOMY 03/05/12 early appendicitis LAPAROSCOPIC SALPING/OOPHORECTOMY Left 06/19/2017 [facility] KOVACS ABD PRTM&OMENTUM DX W/WO SPEC BR/WA SPX Laparoscopy RSO LIG/TRNSXJ FLP TUBE ABDL/VAG APPR UNI/BI Tubal ligation NEUROPLASTY &/TRANSPOS MEDIAN NRV CARPAL TUNNE Carpal tunnel decomp PAST SURGICAL HISTORY OF neuroma removed both feet PAST SURGICAL HISTORY OF skin cancer removed from left leg PAST SURGICAL HISTORY OF skin surgeries- skin scraping PAST SURGICAL HISTORY OF EP Ablation- Heart SIGMOIDOSCOPY FLX DX W/COLLJ SPEC BR/WA IF PFRMD 09/29/12 Sigmoidoscopy, flexible Family History FAMILY HISTORY Problem Relation Age of Onset Hypertension Mother Cancer Father PROSTATE, &STROKE,HYPERTENSION AND HEART Hypertension Father Heart Father Stroke Father COPD Father Cancer Paternal Grandmother COL0N Colon Cancer Maternal Grandmother Patient Allergies ALLERGIES Allergen Reactions Environmental [Othe* nasal congestion/sneezing Current Medications Current Outpatient Medications on File Prior to Visit Medication Sig CALCIUM ORAL Take by mouth as directed. CHOLECALCIFEROL, VITAMIN D3, ORAL Take by mouth as directed. aspirin, enteric coated (ASPIRIN, ENTERIC COATED) 81 mg EC tablet Take 81 mg by mouth once daily. MULTIVITAMIN ORAL Take by mouth as directed. Lactobacillus combination no.8 (ADULT PROBIOTIC ORAL) Take by mouth as directed. cetirizine HCl (ZYRTEC ORAL) Take by mouth as directed. hydroCHLOROthiazide (HYDRODIURIL, ESIDRIX) 25 mg tablet Take 1 tablet by mouth once daily. COMPOUNDED PRESCRIPTION Allergy Injections, Two Injections once weekly. mometasone (ASMANEX TWISTHALER) 220 mcg (60 doses) aepb Inhale 1 Puff as instructed twice daily. fluticasone (FLONASE) 50 mcg/actuation nasal spray Use 2 Sprays in each nostril once daily. atorvastatin (LIPITOR) 40 mg tablet Take 1 tablet by mouth once daily. For cholesterol. (Patient not taking: Reported on 08/05/2021 ) fluticasone (FLONASE) 50 mcg/actuation nasal spray Use 2 Sprays in each nostril once daily. Rinse mouth after use. (Patient not taking: Reported on 01/31/2020 ) cyclobenzaprine (FLEXERIL) 10 mg tablet Take 1 tablet by mouth three times daily as needed for Muscle Spasm. (Patient not taking: Reported on 05/03/2019 ) Betamethasone Valerate (LUXIQ) 0.12 % foam Apply to affected area once daily as needed. (Patient not taking: Reported on 05/03/2019 ) clobetasol (TEMOVATE) 0.05 % ointment Apply to affected area twice daily. (Patient not taking: Reported on 05/03/2019 ) No current facility-administered medications on file prior to visit. Social History Social History Tobacco Use Smoking status: Never Smoker Smokeless tobacco: Never Used Tobacco comment: No smokers in household Substance Use Topics Alcohol use: Yes Comment: Occasionally Drug use: No Review of Symptoms REVIEW OF SYSTEMS GENERAL: No weight loss, malaise or fevers NECK: Negative for lumps, goiter, pain and significant neck swelling RESPIRATORY: Negative for cough, hemoptysis, wheezing, COPD, dyspnea or shortness of breath CARDIOVASCULAR: Negative for chest pain, leg swelling, hypertension, CHF or palpitations NEURO: No history of headaches, syncope, paralysis, seizures or tremors EXAM: BP 118/68 (BP Site: Left Arm, BP Position: Sitting, BP Cuff Size: Large Adult) Pulse 76 Temp 36.3 C (97.4 F) Resp 16 Wt 68 kg (150 lb) LMP 10/17/2009 BMI 28.34 kg/m General Appearance: Well appearing, alert, in no acute distress, well-hydrated, well nourished.. Neck: Supple, no adenopathy; thyroid symmetric, normal size, no bruits. Lungs: Lungs clear to auscultation. No wheezing, rhonchi, rales.. Heart: RRR without murmur, gallop, or rubs. No ectopy. Extremities: No deformities, edema, skin discoloration, clubbing or cyanosis. Good capillary refill. . Peripheral Pulses: Normal. Health Maintenance List HEPATITIS C SCREENING Never done SHINGRIX VACCINE(2 of 3) due on 06/08/2012 PNEUMOVAX AGE 65 AND OVER WITH 5YR LOOKBACK(1) due on 02/02/2020 ADVANCE DIRECTIVE DISCUSSION Never done COVID-19 VACCINE(4 - Booster for Pfizer series) due on 04/29/2021 MAMMOGRAM due on 05/11/2021 DEPRESSION SCREENING due on 06/04/2021 INFLUENZA(Season Ended) due on 11/14/2021 ANNUAL PCP TEAM CHRONIC DISEASE VISIT due on 08/05/2022 BP CONTROLLED (<130/80) due on 08/05/2022 DIABETES SCREEN due on 03/19/2023 COLORECTAL CANCER SCREENING due on 05/16/2024 LIPID SCREEN due on 06/15/2025 DTAP,TDAP,TD(3 - Td or Tdap) due on 09/19/2025 BONE DENSITY Completed MENINGOCOCCAL CONJUGATE Aged Out Data reviewed n/a ASSESSMENT/PLAN: 1. Hypertension, essential - ICD9: 401.9, ICD10: I10 (primary diagnosis) - good control - Continue current medication(s) - Recommended regular aerobic exercise. - Recommend home blood pressure monitoring, to bring results in on next visit - Goal of BP <130/80 - COMP METABOLIC PANEL - CBC + DIFF - URINALYSIS, WITH MICROSCOPIC 2. Hyperlipidemia, mixed - ICD9: 272.2, ICD10: E78.2 - to be determined upon return of lab results - Discussed the benefits of regular aerobic exercise and weight loss. - Encouraged following a low carbohydrate, healthy oil intake diet. - LIPID PANEL, NONFASTING 3. 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 Status post ablation operation for arrhythmia - ICD9: V45.89, ICD10: Z98.890, Z86.79 As #3 5. Age-related osteoporosis without current pathological fracture - ICD9: 733.01, ICD10: M81.0 - set up for DXA... Given troubles with jaw, would not be a candidate for fosamax. I would prefer patient to see endo. Patient will decide once bone density completed - Reviewed the need for Calcium and Vitamin D supplements and weight bearing exercise as tolerated - DXA-AXIAL SKELETON 6. 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 Need for hepatitis C screening test - ICD9: V73.89, ICD10: Z11.59 - HEP C AB IA W/CONF SCRN Cecy Wallis PA-C documented in this encounter [facility] 07-22-2021 Miscellaneous Notes Patient notified and scheduled. Mee Dumas MA Patient needs to make an appt to be seen for routine appt and keep it. If she does not then she will need to try to establish with either Dr. Benavidez or Dr. Calderon. Spoke with Madiha at [facility] and she will cancel all remaining refills. 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 States she had just gotten back from a 19 hr car ride. She rescheduled for 08/20/21 at 10 am. Advised her that our schedule does not reflect this and did not see anything in her chart that shows My Chart regarding canceling appointment. Pt very adamant that she did reschedule. She logs into My Chart but now only sees today's appointment. Thinks maybe she possibly didn't click on something at the very end?? States she had her calendar with her to see what days she was available. Advised pt would need to send message to Dr Romeo to explain and see if he is willing to let pt reschedule appointment. Advised pt she would be contacted after review by Dr Romeo. Vicente Mares LPN Patient no showed her est care visit. Please contact pharmacy to cancel any refills on her prescription we previous sent. Remove Dr. Romeo as pcp as well.. Let patient know that we gave her the courtesy to establish with Dr. Romeo since her has seen us. However, since she has no showed her visit today and dr. Romeo's practice is technically closed to new and [facility] patient's, she will need to establish care with a different provider who is still accepting [place] patients. Thank-you, Cecy Wallis PA-C documented in this encounter [facility] documented as of this encounter (statuses as of 06/17/2021) [facility] History of Past illness Narrative* Problem Noted Date Resolved Date C. difficile colitis 04/16/2012 04/26/2014 Acute appendicitis without mention of peritoniti s 03/06/2012 04/26/2014 Mucous polyp of cervix 09/14/2006 5 Postmenopausal bleeding 09/14/2006 10/19/19 15 Symptomatic menopausal or female climacteric sta brodie 09/14/2006 10/18/2014 Lesion of plantar nerve 04/26/19 15 documented as of this encounter (statuses as of 07/22/2021) [facility] History of Past illness Narrative* Problem Noted Date Resolved Date C. difficile colitis 04/16/2012 04/26/2014 Acute appendicitis without mention of peritoniti s 03/06/2012 04/26/2014 Mucous polyp of cervix 09/14/2006 5 Postmenopausal bleeding 09/14/2006 10/19/19 15 Symptomatic menopausal or female climacteric sta brodie 09/14/2006 10/18/2014 Lesion of plantar nerve 04/26/19 15 documented as of this encounter (statuses as of 08/05/2021) [facility] History of Past illness Narrative* Problem Noted Date Resolved Date C. difficile colitis 04/16/2012 04/26/2014 Acute appendicitis without mention of peritoniti s 03/06/2012 04/26/2014 Mucous polyp of cervix 09/14/2006 5 Postmenopausal bleeding 09/14/2006 10/19/19 15 Symptomatic menopausal or female climacteric sta brodie 09/14/2006 10/18/2014 Lesion of plantar nerve 04/26/19 15 documented as of this encounter (statuses as of 08/06/2021) [facility] History of Past illness Narrative* Problem Noted Date Resolved Date C. difficile colitis 04/16/2012 04/26/2014 Acute appendicitis without mention of peritoniti s 03/06/2012 04/26/2014 Mucous polyp of cervix 09/14/2006 5 Postmenopausal bleeding 09/14/2006 10/19/19 15 Symptomatic menopausal or female climacteric sta brodie 09/14/2006 10/18/2014 Lesion of plantar nerve 04/26/19 15 documented as of this encounter (statuses as of 08/13/2021) [facility] History of Past illness Narrative* Problem Noted Date Resolved Date C. difficile colitis 04/16/2012 04/26/2014 Acute appendicitis without mention of peritoniti s 03/06/2012 04/26/2014 Mucous polyp of cervix 09/14/2006 5 Postmenopausal bleeding 09/14/2006 10/19/19 15 Symptomatic menopausal or female climacteric sta brodie 09/14/2006 10/18/2014 Lesion of plantar nerve 04/26/19 15 documented as of this encounter (statuses as of 08/14/2021) [facility] History of Past illness Narrative* Problem Noted Date Resolved Date C. difficile colitis 04/16/2012 04/26/2014 Acute appendicitis without mention of peritoniti s 03/06/2012 04/26/2014 Mucous polyp of cervix 09/14/2006 5 Postmenopausal bleeding 09/14/2006 10/19/19 15 Symptomatic menopausal or female climacteric sta brodie 09/14/2006 10/18/2014 Lesion of plantar nerve 04/26/19 15 documented as of this encounter (statuses as of 08/14/2021) [facility] History of Past illness Narrative* Problem Noted Date Resolved Date C. difficile colitis 04/16/2012 04/26/2014 Acute appendicitis without mention of peritoniti s 03/06/2012 04/26/2014 Mucous polyp of cervix 09/14/2006 5 Postmenopausal bleeding 09/14/2006 10/19/19 15 Symptomatic menopausal or female climacteric sta brodie 09/14/2006 10/18/2014 Lesion of plantar nerve 04/26/19 15 documented as of this encounter (statuses as of 08/27/2021) [facility] History of Past illness Narrative* Problem Noted Date Resolved Date C. difficile colitis 04/16/2012 04/26/2014 Acute appendicitis without mention of peritoniti s 03/06/2012 04/26/2014 Mucous polyp of cervix 09/14/2006 5 Postmenopausal bleeding 09/14/2006 10/19/19 15 Symptomatic menopausal or female climacteric sta brodie 09/14/2006 10/18/2014 Lesion of plantar nerve 04/26/19 15 documented as of this encounter (statuses as of 09/11/2021) [facility] History of Past illness Narrative* Problem Noted Date Resolved Date C. difficile colitis 04/16/2012 04/26/2014 Acute appendicitis without mention of peritoniti s 03/06/2012 04/26/2014 Mucous polyp of cervix 09/14/2006 5 Postmenopausal bleeding 09/14/2006 10/19/19 15 Symptomatic menopausal or female climacteric sta brodie 09/14/2006 10/18/2014 Lesion of plantar nerve 04/26/19 15 documented as of this encounter (statuses as of 09/13/2021) [facility] History of Past illness Narrative* Problem Noted Date Resolved Date C. difficile colitis 04/16/2012 04/26/2014 Acute appendicitis without mention of peritoniti s 03/06/2012 04/26/2014 Mucous polyp of cervix 09/14/2006 5 Postmenopausal bleeding 09/14/2006 10/19/19 15 Symptomatic menopausal or female climacteric sta brodie 09/14/2006 10/18/2014 Lesion of plantar nerve 04/26/19 15 documented as of this encounter (statuses as of 09/25/2021) [facility] History of Past illness Narrative* Problem Noted Date Resolved Date C. difficile colitis 04/16/2012 04/26/2014 Acute appendicitis without mention of peritoniti s 03/06/2012 04/26/2014 Mucous polyp of cervix 09/14/2006 5 Postmenopausal bleeding 09/14/2006 10/19/19 15 Symptomatic menopausal or female climacteric sta brodie 09/14/2006 10/18/2014 Lesion of plantar nerve 04/26/19 15 documented as of this encounter (statuses as of 11/14/2021) [facility] History of Past illness Narrative* Problem Noted Date Resolved Date C. difficile colitis 04/16/2012 04/26/2014 Acute appendicitis without mention of peritoniti s 03/06/2012 04/26/2014 Mucous polyp of cervix 09/14/2006 5 Postmenopausal bleeding 09/14/2006 10/19/19 15 Symptomatic menopausal or female climacteric sta brodie 09/14/2006 10/18/2014 Lesion of plantar nerve 04/26/19 15 documented as of this encounter (statuses as of 12/16/2021) [facility] History of Past illness Narrative* Problem Noted Date Resolved Date C. difficile colitis 04/16/2012 04/26/2014 Acute appendicitis without mention of peritoniti s 03/06/2012 04/26/2014 Mucous polyp of cervix 09/14/2006 5 Postmenopausal bleeding 09/14/2006 10/19/19 15 Symptomatic menopausal or female climacteric sta brodie 09/14/2006 10/18/2014 Lesion of plantar nerve 04/26/19 15 documented as of this encounter (statuses as of 12/17/2021) [facility] History of Past illness Narrative* Problem Noted Date Resolved Date C. difficile colitis 04/16/2012 04/26/2014 Acute appendicitis without mention of peritoniti s 03/06/2012 04/26/2014 Mucous polyp of cervix 09/14/2006 5 Postmenopausal bleeding 09/14/2006 10/19/19 15 Symptomatic menopausal or female climacteric sta brodie 09/14/2006 10/18/2014 Lesion of plantar nerve 04/26/19 15 documented as of this encounter (statuses as of 03/04/2022) [facility] History of Past illness Narrative* Problem Noted Date Resolved Date C. difficile colitis 04/16/2012 04/26/2014 Acute appendicitis without mention of peritoniti s 03/06/2012 04/26/2014 Mucous polyp of cervix 09/14/2006 5 Postmenopausal bleeding 09/14/2006 10/19/19 15 Symptomatic menopausal or female climacteric sta brodie 09/14/2006 10/18/2014 Lesion of plantar nerve 04/26/19 15 documented as of this encounter (statuses as of 03/09/2022) [facility] History of Past illness Narrative* Problem Noted Date Resolved Date C. difficile colitis 04/16/2012 04/26/2014 Acute appendicitis without mention of peritoniti s 03/06/2012 04/26/2014 Mucous polyp of cervix 09/14/2006 5 Postmenopausal bleeding 09/14/2006 10/19/19 15 Symptomatic menopausal or female climacteric sta brodie 09/14/2006 10/18/2014 Lesion of plantar nerve 04/26/19 15 documented as of this encounter (statuses as of 03/21/2022) [facility] History of Past illness Narrative* Problem Noted Date Resolved Date C. difficile colitis 04/16/2012 04/26/2014 Acute appendicitis without mention of peritoniti s 03/06/2012 04/26/2014 Mucous polyp of cervix 09/14/2006 5 Postmenopausal bleeding 09/14/2006 10/19/19 15 Symptomatic menopausal or female climacteric sta brodie 09/14/2006 10/18/2014 Lesion of plantar nerve 04/26/19 15 documented as of this encounter (statuses as of 03/22/2022) [facility] History of Past illness Narrative* Problem Noted Date Resolved Date C. difficile colitis 04/16/2012 04/26/2014 Acute appendicitis without mention of peritoniti s 03/06/2012 04/26/2014 Mucous polyp of cervix 09/14/2006 5 Postmenopausal bleeding 09/14/2006 10/19/19 15 Symptomatic menopausal or female climacteric sta brodie 09/14/2006 10/18/2014 Lesion of plantar nerve 04/26/19 15 documented as of this encounter (statuses as of 04/09/2022) [facility] History of Past illness Narrative* Problem Noted Date Resolved Date C. difficile colitis 04/16/2012 04/26/2014 Acute appendicitis without mention of peritoniti s 03/06/2012 04/26/2014 Mucous polyp of cervix 09/14/2006 5 Postmenopausal bleeding 09/14/2006 10/19/19 15 Symptomatic menopausal or female climacteric sta brodie 09/14/2006 10/18/2014 Lesion of plantar nerve 04/26/19 15 documented as of this encounter (statuses as of 05/01/2022) [facility] History of Past illness Narrative* Problem Noted Date Resolved Date C. difficile colitis 04/16/2012 04/26/2014 Acute appendicitis without mention of peritoniti s 03/06/2012 04/26/2014 Mucous polyp of cervix 09/14/2006 5 Postmenopausal bleeding 09/14/2006 10/19/19 15 Symptomatic menopausal or female climacteric sta brodie 09/14/2006 10/18/2014 Lesion of plantar nerve 04/26/19 15 documented as of this encounter (statuses as of 06/02/2022) [facility] History of Past illness Narrative* Problem Noted Date Resolved Date C. difficile colitis 04/16/2012 04/26/2014 Acute appendicitis without mention of peritoniti s 03/06/2012 04/26/2014 Mucous polyp of cervix 09/14/2006 5 Postmenopausal bleeding 09/14/2006 10/19/19 15 Symptomatic menopausal or female climacteric sta brodie 09/14/2006 10/18/2014 Lesion of plantar nerve 04/26/19 15 documented as of this encounter (statuses as of 07/17/2022) [facility] History of Past illness Narrative* Problem Noted Date Diagnosed Date Resolved Date C. difficile colitis 04/16/2012 015 Acute appendicitis without m ention of peritonitis 03/06/2012 04/26/2014 Mucous polyp of cervix 09/14/200604/26 Postmenopausal bleeding 09/14/200607/2014 Symptomatic menopausal or fe male climacteric states 09/14/2006 10/18/2014 Lesion of plantar nerve 04/16 documented as of this encounter (statuses as of 12/04/2022) [facility] Diagnosis Encounter for screening mammogram for breast cancer [facility] Diagnosis Hypertension, essential- Primary Unspecified essential hypertension Hyperlipidemia, mixed Mixed hyperlipidemia AVNRT (AV ronald re-entry tachycardia) (HCC) Other specified cardiac dysrhythmias Status post ablation operation for arrhythmia Other postprocedural status Age-related osteoporosis without current pathological fracture Senile osteoporosis Tubulovillous adenoma of rectum Benign neoplasm of rectum and anal canal Need for hepatitis C screening test Special screening examination for other specified viral diseases [facility] Diagnosis AVNRT (AV ronald re-entry tachycardia) (HCC)- Primary Other specified cardiac dysrhythmias Mild tricuspid regurgitation Diseases of tricuspid valve [facility] Diagnosis Age-related osteoporosis without current pathological fracture Senile osteoporosis [facility] Diagnosis Age-related osteoporosis without current pathological fracture- Primary Senile osteoporosis [facility] Diagnosis Hyperlipidemia, mixed- Primary Mixed hyperlipidemia [facility] Diagnosis Dysuria- Primary [facility] Diagnosis Hyperlipidemia, mixed- Primary Mixed hyperlipidemia AVNRT (AV ronald re-entry tachycardia) (HCC) Other specified cardiac dysrhythmias Hypertension, essential Unspecified essential hypertension Elevated blood sugar Other abnormal glucose [facility] Diagnosis DDD (degenerative disc disease), lumbar Degeneration of lumbar or lumbosacral intervertebral disc Chronic pain syndrome [facility] Diagnosis Medicare annual wellness visit, subsequent- Primary Routine general medical examination at a health care facility Hypertension, essential Unspecified essential hypertension Hyperlipidemia, mixed Mixed hyperlipidemia AVNRT (AV ronald re-entry tachycardia) (HCC) Other specified cardiac dysrhythmias Tubulovillous adenoma of rectum Benign neoplasm of rectum and anal canal Chronic pain syndrome Encounter for immunization Need for other specified prophylactic vaccination against single bacterial disease Living will in place Elevated blood sugar Other abnormal glucose documented in this encounter [facility] note* Diagnosis Encounter for immunization- Primary Need for other specified prophylactic vaccination against single bacterial disease documented in this encounter [facility] note* Diagnosis Hypokalemia- Primary Hypopotassemia documented in this encounter [facility] note* Diagnosis Hypokalemia- Primary Hypopotassemia documented in this encounter [facility] note* Diagnosis Rheumatic tricuspid valve regurgitation- Primary Diseases of tricuspid valve AVNRT (AV ronald re-entry tachycardia) (HCC) Other specified cardiac dysrhythmias documented in this encounter [facility] for referral (narrative)* Diagnostic Procedure Only (Routine) - Pending Review Specialty Diagnoses / Procedures Referred By Donna burks Referred To Contact [facility] Diagnoses Encounter for screening mammogram for breast cancer Procedures BEV SCREENING SCREENING MAMMOGRAPHY BI 2-VIEW BREAST INC CAD Gale Romeo MD [address] [place] [address] [facility] [address] [place] [phone] Referral ID Status Reason Start Date Expiration Date Visits Requested Visits Authorized [id number] Pending Review Auto-Generat ed Referral 06/12/2021 07/12/[address] [facility] for referral (narrative)* Outpatient Procedure (Routine) - Pending Review Specialty Diagnoses / Procedures Referred By Donna burks [facility] Diagnoses AVNRT (AV ronald re-entry tachycardia) (HCC) Mild tricuspid regurgitation Procedures ECHO ECHO TTHRC R-T 2D W/WOM-MODE COMPL SPEC&COLR D Patricia Metcalf MD [address] [place] [address] [facility] [address] [address] Referral ID Status Reason Start Date Expiration Date Visits Requested Visits Authorized [id number] Pending Review Auto-Generat ed Referral 08/06/2021 08/06/2022 1 1 * Outpatient Procedure (Routine) - Authorized Specialty Diagnoses / Procedures Referred By Contac t Referred To [facility] Diagnoses AVNRT (AV ronald re-entry tachycardia) (HCC) Mild tricuspid regurgitation Procedures ECG COMPLETE ECG ROUTINE ECG W/LEAST 12 LDS W/I&R Patricia Metcalf MD [address] [place] [address] [facility] [place] [address] [place] [address] Referral ID Status Reason Start Date Expiration Date Visits Requested Visits Authorized [id number] Authorized Auto-Generat ed Referral 08/06/2021 08/06/2022 1 1 [facility] Summary Purpose Family History No Family History Records FoundNo Family History Records Found Advance Directives No Advanced Directives Records FoundDocuments on File Type Date Recorded Patient Community Relations Representative Expl anation Advance Directive(s) 05/17/2019 6:29 AM Advance Directive(s) 05/03/2019 12:55 PM Advance Directive(s) 04/18/2016 7:00 AM Documents on File Type Date Recorded Patient Community Relations Representative Expl anation Advance Directive(s) 05/17/2019 6:29 AM Advance Directive(s) 05/03/2019 12:55 PM Advance Directive(s) 04/18/2016 7:00 AM Additional Source Comments INFORMATION SOURCE (unrecogn ized section and content) DATE CREATED AUTHOR AUTHOR'S ORGANIZ ATION 03/24/2023 [facility] Source Comments (unrecognize d section and content) In the event this informatio n is protected by the Federal Confidentiality of Alcohol and Drug Abuse Patient Records regulations: The Federal rules restrict any use of the information to criminally investigate or prosecute any alcohol or drug abuse patient.[facility] the event this information is protected by the Federal Confidentiality of Alcohol and Drug Abuse Patient Records regulations: The Federal rules restrict any use of the information to criminally investigate or prosecute any alcohol or drug abuse patient.[facility] the event this information is protected by the Federal Confidentiality of Alcohol and Drug Abuse Patient Records regulations: The Federal rules restrict any use of the information to criminally investigate or prosecute any alcohol or drug abuse patient.[facility] the event this information is protected by the Federal Confidentiality of Alcohol and Drug Abuse Patient Records regulations: The Federal rules restrict any use of the information to criminally investigate or prosecute any alcohol or drug abuse patient.[facility] the event this information is protected by the Federal Confidentiality of Alcohol and Drug Abuse Patient Records regulations: The Federal rules restrict any use of the information to criminally investigate or prosecute any alcohol or drug abuse patient.[facility] the event this information is protected by the Federal Confidentiality of Alcohol and Drug Abuse Patient Records regulations: The Federal rules restrict any use of the information to criminally investigate or prosecute any alcohol or drug abuse patient.[facility] the event this information is protected by the Federal Confidentiality of Alcohol and Drug Abuse Patient Records regulations: The Federal rules restrict any use of the information to criminally investigate or prosecute any alcohol or drug abuse patient.[facility] the event this information is protected by the Federal Confidentiality of Alcohol and Drug Abuse Patient Records regulations: The Federal rules restrict any use of the information to criminally investigate or prosecute any alcohol or drug abuse patient.[facility] the event this information is protected by the Federal Confidentiality of Alcohol and Drug Abuse Patient Records regulations: The Federal rules restrict any use of the information to criminally investigate or prosecute any alcohol or drug abuse patient.[facility] the event this information is protected by the Federal Confidentiality of Alcohol and Drug Abuse Patient Records regulations: The Federal rules restrict any use of the information to criminally investigate or prosecute any alcohol or drug abuse patient.[facility] the event this information is protected by the Federal Confidentiality of Alcohol and Drug Abuse Patient Records regulations: The Federal rules restrict any use of the information to criminally investigate or prosecute any alcohol or drug abuse patient.[facility] the event this information is protected by the Federal Confidentiality of Alcohol and Drug Abuse Patient Records regulations: The Federal rules restrict any use of the information to criminally investigate or prosecute any alcohol or drug abuse patient.[facility] the event this information is protected by the Federal Confidentiality of Alcohol and Drug Abuse Patient Records regulations: The Federal rules restrict any use of the information to criminally investigate or prosecute any alcohol or drug abuse patient.[facility]In the event this information is protected by the Federal Confidentiality of Alcohol and Drug Abuse Patient Records regulations: The Federal rules restrict any use of the information to criminally investigate or prosecute any alcohol or drug abuse patient.[facility]In the event this information is protected by the Federal Confidentiality of Alcohol and Drug Abuse Patient Records regulations: The Federal rules restrict any use of the information to criminally investigate or prosecute any alcohol or drug abuse patient.[facility]In the event this information is protected by the Federal Confidentiality of Alcohol and Drug Abuse Patient Records regulations: The Federal rules restrict any use of the information to criminally investigate or prosecute any alcohol or drug abuse patient.[facility]In the event this information is protected by the Federal Confidentiality of Alcohol and Drug Abuse Patient Records regulations: The Federal rules restrict any use of the information to criminally investigate or prosecute any alcohol or drug abuse patient.[facility] HospitalIn the event this information is protected by the Federal Confidentiality of Alcohol and Drug Abuse Patient Records regulations: The Federal rules restrict any use of the information to criminally investigate or prosecute any alcohol or drug abuse patient.[facility] HospitalIn the event this information is protected by the Federal Confidentiality of Alcohol and Drug Abuse Patient Records regulations: The Federal rules restrict any use of the information to criminally investigate or prosecute any alcohol or drug abuse patient.[facility] HospitalIn the event this information is protected by the Federal Confidentiality of Alcohol and Drug Abuse Patient Records regulations: The Federal rules restrict any use of the information to criminally investigate or prosecute any alcohol or drug abuse patient.[facility] HospitalIn the event this information is protected by the Federal Confidentiality of Alcohol and Drug Abuse Patient Records regulations: The Federal rules restrict any use of the information to criminally investigate or prosecute any alcohol or drug abuse patient.[facility] HospitalIn the event this information is protected by the Federal Confidentiality of Alcohol and Drug Abuse Patient Records regulations: The Federal rules restrict any use of the information to criminally investigate or prosecute any alcohol or drug abuse patient.[facility] HospitalIn the event this information is protected by the Federal Confidentiality of Alcohol and Drug Abuse Patient Records regulations: The Federal rules restrict any use of the information to criminally investigate or prosecute any alcohol or drug abuse patient.[facility] Care Teams (unrecognized sec tion and content) [employer]razzo Finisher Relationship Specialty Start Date End Date Gale Romeo MD [address] [place], [place] [id number] PCP - General Family Practice 07/22/21 Gran[employer] Terrazzo Finisher Relationship Specialty Start Date End Date Gale Romeo MD [address] [place], [place] [id number] PCP - General Family Practice 07/22/21 Gran[employer] Chip Terrazzo Finisher Relationship Specialty Start Date End Date Gale Romeo MD [address] [facility] [place] [address] PCP - General Family Practice 07/22/21 Granite Chip Terrazzo Finisher Relationship Specialty Start Date End Date Gale Romeo MD [facility] [place] [address] PCP - General Family Practice 07/22/21 Gran[employer] Chip Terrazzo Finisher Relationship Specialty Start Date End Date Gale Romeo MD [address] [place] [address], [place] [address] PCP - General Family Practice 07/22/21 Gran[employer] Chip Terrazzo Finisher Relationship Specialty Start Date End Date Gale Romeo MD [address] [place] [address], [place] [address] PCP - General Family Practice 07/22/21 Granite Chip Terrazzo Finisher Relationship Specialty Start Date End Date Gale Romeo MD [facility] [place] [address] PCP - General Family Practice 07/22/21 Gran[employer] Chip Terrazzo Finisher Relationship Specialty Start Date End Date Gale Romeo MD [facility] [place] [address] PCP - General Family Practice 07/22/21 Gran[employer] Chip Terrazzo Finisher Relationship Specialty Start Date End Date Gale Romeo MD [address] [place] [address], [place] [address] PCP - General Family Practice 07/22/21 Granite Chip Terrazzo Finisher Relationship Specialty Start Date End Date Gale Romeo MD [address] [place] [address], [place] [address] PCP - General Family Medicine 07/22/21 Gran[employer] Chip Terrazzo Finisher Relationship Specialty Start Date End Date Gale Romeo MD [address] [place] [address], [place] [address] PCP - General Family Medicine 07/22/21 Gran[employer] Chip Terrazzo Finisher Relationship Specialty Start Date End Date Gale Romeo MD [address] [facility] [place] [address] PCP - General Family Medicine 07/22/21 Granite Chip Terrazzo Finisher Relationship Specialty Start Date End Date Gale Romeo MD [address] [facility] [place] [place] [address] PCP - General Family Medicine 07/22/21 Granite Chip Terrazzo Finisher Relationship Specialty Start Date End Date Gale Romeo MD [address] [facility] [place] [place] [address] PCP - General Family Medicine 07/22/21 Granite Chip Terrazzo Finisher Relationship Specialty [place] [address] [place] [address] [place] [address] PCP - General Family Medicine 07/22/21 Granite Chip Terrazzo Finisher Relationship Specialty Start Date End Date Gale Romeo MD [address] [facility] [place] [address] PCP - General Family Medicine 07/22/21 Granite Chip Terrazzo Finisher Relationship Specialty [place] [address] [place] [address] [place] [address] PCP - General Family Medicine 07/22/21 Granite Chip Terrazzo Finisher Relationship Specialty [place] [address] [place] [address], [place] [address] PCP - General Family Medicine 07/22/21 Reason for Visit (unrecogniz ed section and content) Reason Comments Recheck Reason Comments Results Reason Comments Follow Up Reason Comments Uti - Re-occurring Reason Onset Date Comments Refill Request 09/13/2021 Reason Comments Handicap Placard Letter Reason Comments Refill Request Reason Comments Medicare Wellness Exam Reason Comments Appointment Reason Comments Imm/Inj Reason Onset Date Comments Refill Request 06/01/2022 Reason Onset Date Comments Refill Request 12/03/2022 FOR RECORDS PERTAINING TO PATIENTS WHO ARE OR HAVE BEEN ENROLLED IN A CHEMICAL DEPENDENCY/SUBSTANCEABUSE PROGRAM, SOME INFORMATION MAY BE OMITTED. This clinical summary was aggregated from multiple sources. Caution should be exercised in using it in the provision of clinical care. This summary normalizes information from multiple sources, and as a consequence, information in this document may materially change the coding, format and clinical context of patient data. In addition, data may be omitted in some cases. CLINICAL DECISIONS SHOULD BE BASED ON THE PRIMARY CLINICAL RECORDS. [facility] [employer] [facility]. provides no warranty or guarantee of the accuracy or completeness of information in this document.
== END | disposition home or self-care (01) ==
LOC: CT 07:53
PROVIDERS: PCP Family Medicine; Referring Provider Otolaryngology Otolaryngology/Facial Plastic Surgery; Visit Provider Otolaryngology Otolaryngology/Facial Plastic Surgery
DX: J32.9 Chronic sinusitis, unspecified (principal)
CPT/HCPCS: 70486

== ENCOUNTER → 2023-05-18 | Outpatient (CLI) | payer MEDICARE, SELFPAY ==
[2023-05-22 18:08] LABS: Almond <0.10 kU/L (Class 0); Brazil Nut <0.10 kU/L (Class 0); Cashew <0.10 kU/L (Class 0); Clam <0.10 kU/L (Class 0); Crab <0.10 kU/L (Class 0); Egg, Whole <0.10 kU/L (Class 0); Lobster <0.10 kU/L (Class 0); Milk (Cow) <0.10 kU/L (Class 0); Oat <0.10 kU/L (Class 0); Peanut 0.13 kU/L (Class 0/I); Pecan <0.10 kU/L (Class 0); Pistachio Nut 0.16 kU/L (Class 0/I); Potato, White 0.13 kU/L (Class 0/I); Salmon <0.10 kU/L (Class 0); Shrimp <0.10 kU/L (Class 0); Soybean <0.10 kU/L (Class 0); Tuna <0.10 kU/L (Class 0); Walnut, (Food) <0.10 kU/L (Class 0); Wheat 0.13 kU/L (Class 0/I); Yeast <0.10 kU/L (Class 0)
== END | disposition home or self-care (01) ==
LOC: LAB 08:36
PROVIDERS: PCP Family Medicine; Referring Provider Otolaryngology Otolaryngology/Facial Plastic Surgery; Visit Provider Otolaryngology Otolaryngology/Facial Plastic Surgery
DX: T78.40XA Allergy, unspecified, initial encounter (principal); X58.XXXA Exposure to other specified factors, initial encounter
CPT/HCPCS: 36415; 86003

== ENCOUNTER → 2023-07-30 | Outpatient (CLI) | payer MEDICARE, SELFPAY ==
--- NOTE | 2023-07-30 09:11 | BI_ITS ---
MAMMOGRAPHY - BILATERAL DIAGNOSTIC REASON FOR EXAM: Female, 72 years old. One-day history of upper outer quadrant pain in the right breast. Prior left ultrasound-guided breast biopsy. PERTINENT HISTORY: Non-contributory. TECHNIQUE: Digital bilateral breast jacquie (3D mammographic acquisition) in the CC and MLO projections. 2-D mediolateral oblique (MLO) and craniocaudad (CC) views of both breasts were obtained. CAD: Full Field Digital Mammography with Computer Added Detection was performed. COMPARISON: Comparison is made with prior study dated May 01, 2022 and December 19, 2020. FINDINGS: Breast Composition: The breasts are heterogeneously dense, which may obscure small masses. There are no dominant masses or suspicious calcifications. Stable benign-appearing bilateral axillary lymph nodes. No other significant abnormalities are identified. There has been no significant change since the prior study. BI/DIAG MAMM W/CAD, BILAT IMPRESSION: Stable bilateral diagnostic mammogram. With the patient''s history of pain in the upper outer quadrant of the right breast, correlation with targeted ultrasound recommended. ASSESSMENT CATEGORY: BIRADS Category 0: Incomplete. Need additional imaging evaluation. A letter regarding these results will be sent to the patient by the facility within 30 days. Approximately 10% of breast cancers are not detected by mammography. A normal mammogram should not delay biopsy of a clinically suspicious abnormality. Electronically Signed: Johnathan Domingo MD at 10:45 EDT ,
--- NOTE | 2023-07-30 09:11 | US_ITS ---
STUDY: ULTRASOUND BREAST - RIGHT REASON FOR EXAM: Female, 72 years old. Upper outer quadrant right breast pain. TECHNIQUE: Axial and longitudinal images of the RIGHT breast were performed with a high resolution ultrasound transducer. # OF IMAGES: 18 COMPARISON: Comparison is made with prior mammogram done earlier in the day. FINDINGS: RIGHT Breast: The upper outer quadrant of the right breast was examined with ultrasound. There is heterogeneous fibroglandular tissue. No sonographic abnormality is seen. US/Breast Limited Unilateral IMPRESSION: No sonographic abnormality is seen. ASSESSMENT CATEGORY: BIRADS Category 1: Negative. A letter regarding these results will be sent to the patient by the facility within 30 days. Electronically Signed: Johnathan Domingo MD at 10:04 EDT ,
== END | disposition home or self-care (01) ==
LOC: OPBI 08:57
PROVIDERS: PCP Family Medicine; Referring Provider Nurse Practitioner Women's Health; Visit Provider Nurse Practitioner Women's Health
DX: N64.4 Mastodynia (principal)
CPT/HCPCS: 76642; 77062; 77066; G0279

== ENCOUNTER → 2023-11-12 | Outpatient (CLI) | payer MEDICARE, SELFPAY ==
--- NOTE | 2023-11-12 14:06 | CT_ITS ---
STUDY: CT SCAN HAND RIGHT REASON FOR EXAM: Female, 72 years old. PAIN IN RIGHT HAND RADIATION DOSAGE (If Supplied By Facility): CTDIvol = ( 24.58 ) mGy, DLP = ( 695.82 ) mGycm. Individualized dose optimization techniques were used for this CT.? TECHNIQUE: Multiple axial tomographic images were obtained without intravenous contrast demonstration. Coronal and sagittal imaging was obtained as well. COMPARISON: None. FINDINGS: No bony abnormality is seen. Mild degree of soft tissue swelling. CT/Extremity Upper without Contra IMPRESSION: Mild degree of soft tissue swelling. Electronically Signed: Johnathan Domingo MD at 11:11 EDT ,
== END | disposition home or self-care (01) ==
PROVIDERS: PCP Family Medicine; Referring Provider Physician Assistant Surgical; Visit Provider Physician Assistant Surgical
DX: S60.221A Contusion of right hand, initial encounter (principal); M79.641 Pain in right hand; X58.XXXA Exposure to other specified factors, initial encounter
CPT/HCPCS: 73200

== ENCOUNTER → 2024-06-03 | Outpatient (CLI) | payer MEDICARE, SELFPAY ==
[2024-06-07 18:08] LABS: QNTFERON TB Mitogen Value > 10.00 IU/mL (.); QNTFERON TB Nil Value 0.08 IU/mL (.); QNTFERON TB1+ Ag Value 0.08 IU/mL (.); QNTFERON TB2+ Ag Value 0.09 IU/mL (.); QNTIFERON TB Positive Criteria Negative (Negative)
== END | disposition home or self-care (01) ==
LOC: MTLAB 10:17
PROVIDERS: PCP Family Medicine; Referring Provider Dermatology Pediatric Dermatology; Visit Provider Dermatology Pediatric Dermatology
DX: L40.0 Psoriasis vulgaris (principal); L01.01 Non-bullous impetigo; D48.5 Neoplasm of uncertain behavior of skin; Z79.899 Other long term (current) drug therapy
CPT/HCPCS: 36415; 86480

== ENCOUNTER → 2024-08-22 | Outpatient (CLI) | payer MEDICARE, SELFPAY ==
--- NOTE | 2024-08-22 09:17 | BI_ITS ---
EXAM: SCRN MAMM (CAD)W/NIURKA BILAT DATE: 08/22/2024 CLINICAL HISTORY: F, Age 73 y/o , SCREENING FOR BREAST CANCER No family history. History of prior left ultrasound-guided breast biopsy. BREAST CANCER RISK ASSESSMENT: Not assessed. TECHNIQUE: Bilateral screening digital breast tomosynthesis with 2D and 3D images. Computer aided detection. COMPARISON: Prior exam(s) dated July 30, 2023.. FINDINGS: TISSUE DENSITY: The breast tissue is heterogenously dense, which may obscure small masses. Bilateral Breast Mammographic Findings: No significant masses, calcifications or other abnormalities are identified. BI/SCRN MAMM (CAD)W/NIURKA BILAT IMPRESSION: OVERALL FINAL ASSESSMENT: BIRADS 1 NEGATIVE RECOMMENDATION: Routine annual follow-up in 1 Year A letter with findings and recommendations will be mailed to the patient. Reading Location: [place] [id number]
== END | disposition home or self-care (01) ==
LOC: OPBI 09:16
PROVIDERS: PCP Family Medicine; Referring Provider Nurse Practitioner Women's Health; Visit Provider Nurse Practitioner Women's Health
DX: Z12.31 Encounter for screening mammogram for malignant neoplasm of breast (principal)
CPT/HCPCS: 77063; 77067

== ENCOUNTER → 2024-11-08 | Outpatient (CLI) | payer MEDICARE, SELFPAY ==
--- NOTE | 2024-11-08 15:30 | MRI_ITS ---
PROCEDURE: MRI SPINE LUMBAR (ROUTINE) 11/08/2024 REASON FOR EXAM: URINARY RETENTION TECHNIQUE: Multiplanar and multisequential MRI of the lumbar spine was performed without contrast. COMPARISON: None available. FINDINGS: Note transitional anatomy at the lumbosacral junction with lumbarized S1 segment with rudimentary disc space. Close attention to spinal numbering recommended before any planned interventional procedure. No acute fracture or subluxation. Vertebral body heights are preserved. Trace grade 1 degenerative retrolisthesis of L5 relative to L4 and S1. Straightening of the normal lumbar lordosis. No suspicious marrow lesion. Multilevel active type 1 Modic endplate signal changes with heterogeneous marrow edema and fatty replacement. Multilevel spondylotic changes with varying degrees of disc desiccation and narrowing, several small endplate degenerative Schmorl's nodes/subchondral cysts, anterior osteophytosis, and hypertrophic facet arthropathy. Conus appears normal in signal and morphology, terminating at L1. No significant abnormality in the visualized paravertebral soft tissues. Small simple appearing T2 hyperintense left renal cyst. L1-2: Broad-based disc bulge and ligamentum flavum/facet hypertrophy results in mild spinal canal narrowing, and moderate left neural foraminal narrowing. L2-3: Broad-based disc bulge and ligamentum flavum/facet hypertrophy results in moderate spinal canal narrowing with crowding of the cauda equina, and moderate bilateral neural foraminal narrowing. L3-4: Broad-based disc bulge and ligamentum flavum/facet hypertrophy results in moderate spinal canal narrowing with crowding of the cauda equina, and moderate bilateral neural foraminal narrowing, slightly greater on the right. L4-5: Mild degenerative grade 1 anterolisthesis of L4 on L5, with partially uncovered disc bulge and ligamentum flavum/facet hypertrophy results in severe spinal canal stenosis, with focal impingement and redundancy of the cauda equina. Moderate bilateral foraminal narrowing, slightly greater on the right. L5-S1: Broad-based disc bulge and ligamentum flavum/facet hypertrophy results in mild spinal canal narrowing. Moderate-advanced bilateral neural foraminal narrowing. MRI/Spine Lumbar (Routine) IMPRESSION: Multilevel spondylotic changes described in detail above, with multilevel moder ate-advanced spinal canal and neural foraminal stenoses, with most advanced spinal canal stenosis at the L4-5 level with assoc iated cauda equina impingement and redundancy. Reading Location: [id number]
== END | disposition home or self-care (01) ==
LOC: OPMRI 14:54
PROVIDERS: PCP Family Medicine; Referring Provider Anesthesiology Pain Medicine; Visit Provider Anesthesiology Pain Medicine
DX: M48.07 Spinal stenosis, lumbosacral region (principal)
CPT/HCPCS: 72148

== ENCOUNTER → 2025-02-28 | Outpatient (CLI) | payer MEDICARE, SELFPAY ==
--- NOTE | 2025-02-28 09:40 | VDLE_ITS ---
Reason For Study Reason For Study: LLE Swelling Procedure LEFT This is a venous duplex using B-mode, color flow and GSV is normal. spectral Doppler. CFV is compressible, spontaneous, phasic, competent, Exam performed in department. and demonstrates normal augmentation. The exam was diagnostic. FV is compressible, spontaneous, phasic, competent A preliminary report was called and/or faxed to and demonstrates normal augmentation. [facility]. POP V is compressible, spontaneous, phasic, competent and demonstrates normal augmentation. T/P Trunk is compressible. PTV is compressible. LT PerV is compressible. VL/Venous Duplex US, Unilateral Interpretation Summary Deep veins of the left lower extremity are patent and compressible segmentally. There is no evidence of left lower extremity deep vein thrombosis. Valvular competence appears intact within the p roximal deep venous system on the left . The left great saphenous vein appears patent and compressible segmentally. Ordering Physician: Nguyễn Sofia Referring Physician: Harsha Sharma Performed By: Colin Ding RVT
== END | disposition home or self-care (01) ==
LOC: CVS 08:45
PROVIDERS: PCP Family Medicine; Referring Provider Orthopaedic Surgery; Visit Provider Orthopaedic Surgery
DX: R22.42 Localized swelling, mass and lump, left lower limb (principal)
CPT/HCPCS: 93971